=== PATIENT | male | born 1970 | race Caucasian/White ===

== ENCOUNTER 2017-09-07 09:29 | Emergency (ER) | payer MEDICARE, MEDICAID ==
[2017-09-07] MEDS ORDERED: SODIUM CHLORIDE 0.9% 1,000 ML IV ONE ×2 (09:48)
[2017-09-07 10:05] LABS: BASOPHILS # (AUTO) 0.1 10^3/uL (0.0-0.1); BASOPHILS % (AUTO) 0.7 %; HGB - HEMOGLOBIN 15.7 g/dL (14.0-18.0); LYMPHOCYTES # (AUTO) 0.6 10^3/uL (1.5-3.5); LYMPHOCYTES % (AUTO) 4.7 %; MEAN CORPUSCULAR HEMOGLOBIN 32.6 pg (27.0-31.0); MEAN CORPUSCULAR HGB CONC 34.5 g/dL (32.0-36.0); MEAN CORPUSCULAR VOLUME 94.5 fL (80.0-94.0); MEAN PLATELET VOLUME 7.4 fL (7.4-11.4); MONOCYTES # (AUTO) 0.3 10^3/uL (0.0-1.0); MONOCYTES % (AUTO) 2.1 %; NEUTROPHILS # (AUTO) 10.9 10^3/uL (1.5-6.6); NEUTROPHILS % (AUTO) 92.5 %; PLT - PLATELET COUNT 156 10^3/uL (130-450); RED BLOOD COUNT 4.83 10^6/uL (4.70-6.10); RED CELL DISTRIBUTION WIDTH 14.4 % (12.0-15.0); WHITE BLOOD COUNT 11.8 x10^3/uL (4.8-10.8)
[2017-09-07 10:17] LABS: ALBUMIN 3.6 g/dL (3.2-5.5); ALBUMIN/GLOBULIN RATIO 1.1 (1.0-2.2); ALKALINE PHOSPHATASE 60 IU/L (42-121); ALT ALANINE AMINOTRANSFERASE 31 IU/L (10-60); AST ASPARTATE AMINOTRANSFERASE 26 IU/L (10-42); BILIRUBIN,TOTAL 0.7 mg/dL (0.2-1.0); BUN - BLOOD UREA NITROGEN 18 mg/dL (6-20); CALCIUM 8.5 mg/dL (8.5-10.3); CARBON DIOXIDE - CO2 26 mmol/L (21-32); CHLORIDE 99 mmol/L (101-111); CREATININE 1.3 mg/dL (0.6-1.2); GFR - MDRD 59 (>89); GLUCOSE 129 mg/dL (70-100); LIPASE < 10 U/L (22-51); SODIUM 138 mmol/L (135-145)
--- NOTE | 2017-09-07 11:01 | XRAY Report ---
EXAM: CHEST RADIOGRAPHY EXAM DATE: 09/07/2017 10:43 AM. CLINICAL HISTORY: Cough, fever. COMPARISON: None. TECHNIQUE: 2 views. FINDINGS: Lungs/Pleura: Mild interstitial opacity at the lung bases, atelectasis versus infiltrate. No signific ant pleural effusion. No pneumothorax. Mediastinum: Heart and mediastinal contours are unremarkable. Other: None. IMPRESSION: Mild basal interstitial opacity, atelectasis versus infiltrate. [facility] Referring Provider Line: [phone] SITE ID: [id number]
[2017-09-07] MEDS ORDERED: cefTRIAXone 1 GM VIAL IVP STA (11:59)
--- NOTE | 2017-09-07 12:02 | ED Physician Documentation ---
History of Present Illness - Stated complaint Stated Complaint: SORE THROAT - Chief complaint Chief Complaint: Heent - History obtained from History obtained from: Patient, Family - History of Present Illness Timing: How many weeks ago (6) Pain level max: 5 Pain level now: 4 Quality: aching, sore - Additonal information Additional information: Patient is a 47-year-old male with Down syndrome who presents to the emergency department with a sore throat today. He has been sick for the past several weeks. Has had coughing, vomiting. Has also had fevers intermittently. Nothing has made the sore throat better. It is worse with swallowing. Review of Systems Constitutional: reports: Fever Nose: reports: Rhinorrhea / runny nose, Congestion Throat: reports: Sore throat Respiratory: reports: Cough GI: reports: Abdominal Pain (epigastric after vomiting), Vomiting Skin: denies: Rash Musculoskeletal: denies: Neck pain, Back pain Neurologic: denies: Headache PD PAST MEDICAL HISTORY - Past Medical History Past Medical History: Yes Other Past Medical History: downs syndrome - Past Surgical History Past Surgical History: Yes - Present Medications Home Medications: Ambulatory Orders Medication Instructions Recorded Confirmed Azithromycin [Zithromax] 0 mg PO DAILY #6 tablet 09/07/17 - Allergies Allergies/Adverse Reactions: Allergies Allergy/AdvReac Type Severity Reaction Status Date / Time Penicillins Allergy Unknown Verified 09/07/17 09:37 - Social History Does the pt smoke?: No Smoking Status: Never smoker - Immunizations Immunizations are current?: Yes PD ED PE NORMAL - Vitals Vital signs reviewed: Yes - General General: Alert and oriented X 3, No acute distress, Well developed/nourished - HEENT HEENT: PERRL, Ears normal, Moist mucous membranes, Other (Mild posterior oropharyngeal erythema without tonsillar exudates. Lips are dry and cracked) - Neck Neck: Supple, no meningeal sign - Cardiac Cardiac: RRR, Strong equal pulses - Respiratory Respiratory: No respiratory distress, Other (Rhonchi bilaterally) - Abdomen Abdomen: Soft, Non tender, Non distended - Back Back: No CVA TTP, No spinal TTP - Derm Derm: Warm and dry, No rash - Extremities Extremities: No edema - Neuro Neuro: Alert and oriented X 3 - Psych Psych: Normal mood, Normal affect Results - Vitals Vitals: Vital Signs - 24 hr 09/07/17 09/07/1709/07/18 09:34 10:10 12:15 Temperature 36.6 C Heart Rate 97 92 92 Respiratory 18 16 Rate Blood Pressure 91/62 101/73 108/72 O2 Saturation 96 96 Oxygen O2 Source Room air - Labs Labs: Laboratory Tests 09/07/17 09/07/17 09/07/17 09:50 09:50 09:50 WBC 11.8 H RBC 4.83 Hgb 15.7 Hct 45.6 MCV 94.5 H MCH 32.6 H MCHC 34.5 RDW 14.4 Plt Count 156 MPV 7.4 Neut # 10.9 H Lymph # 0.6 L Bibb # 0.3 Eos # 0.0 Baso # 0.1 Absolute Nucleated RBC 0.01 Nucleated RBC % 0.1 Sodium 138 Potassium 3.8 Chloride 99 L Carbon Dioxide 26 Anion Gap 13.0 BUN 18 Creatinine 1.3 H Estimated GFR (MDRD) 59 L Glucose 129 H Lactic Acid 1.2 Calcium 8.5 Total Bilirubin 0.7 AST 26 ALT 31 Alkaline Phosphatase 60 Total Protein 7.0 Albumin 3.6 Globulin 3.4 Albumin/Globulin Ratio 1.1 Lipase < 10 L Group A Strep Rapid 09/07/17 10:43 WBC RBC Hgb Hct MCV MCH MCHC RDW Plt Count MPV Neut # Lymph # Bibb # Eos # Baso # Absolute Nucleated RBC Nucleated RBC % Sodium Potassium Chloride Carbon Dioxide Anion Gap BUN Creatinine Estimated GFR (MDRD) Glucose Lactic Acid Calcium Total Bilirubin AST ALT Alkaline Phosphatase Total Protein Albumin Globulin Albumin/Globulin Ratio Lipase Group A Strep Rapid Negative - Rads (name of study) cxr Radiology: Prelim report reviewed, EMP read contemporaneously, See rad report ( Mild basal interstitial opacity, atelectasis versus infiltrate. ) PD MEDICAL DECISION MAKING - ED course Complexity details: reviewed results, re-evaluated patient, considered differential, d/w patient, d/w family ED course: Patient is a 47-year-old male who presents to the emergency department what appears to be pneumonia. Will place on antibiotics. Given IV Rocephin and will place on azithromycin. He did have emesis 1 here. He did appear dehydrated and feels better after IV fluids. No evidence of sepsis. No hypoxia. No respiratory distress. Patient and family counseled regarding signs and symptoms for which I believe and urgent re-evaluation would be necessary. Patient with good understanding of and agreement to plan and is comfortable going home at this time This document was made in part using voice recognition software. While efforts are made to proofread this document, sound alike and grammatical errors may occur. Departure - Departure Disposition: 01 Home, Self Care Clinical Impression: Dehydration Pneumonia Qualifiers: Pneumonia type: due to unspecified organism Laterality: right Lung location: lower lobe of lung Qualified Code(s): J18.1 - Lobar pneumonia, unspecified organism Condition: Good Instructions: ED Dehydration, ED Pneumonia Adult Follow-Up: your,doctor in 3 days for recheck [Other] Prescriptions: Azithromycin [Zithromax] 0 mg PO DAILY #6 tablet Comments: Drink plenty of fluids. Return if you worsen. Take all antibiotics until gone. Discharge Date/Time: 09/07/17 12:45
[2017-09-07 12:16] VITALS: BP 108/72
[2017-09-07] MEDS ORDERED: ONDANSETRON 4 MG/2 ML VIAL IVP STA (12:22)
== END 2017-09-07 12:45 | disposition home or self-care (01) ==
LOC: ED 09:29
DX: E86.0 Dehydration (principal); J18.9 Pneumonia, unspecified organism; Q90.9 Down syndrome, unspecified
CPT/HCPCS: 36415; 71046; 80053; 83605; 83690; 85025; 87070; 87430; 96374; 96375; 99283; 99284

== ENCOUNTER 2019-10-06 10:58 | Emergency (ER) | payer MEDICARE, MEDICAID ==
--- NOTE | 2019-10-06 12:01 | ED Physician Documentation ---
PD HPI HEAD INJURY - Stated complaint Stated Complaint: CHIN,NECK PX FELL - Chief complaint Chief Complaint: Trauma Hd/Nk - History obtained from History obtained from: Patient - History of Present Illness Mechanism of head injury: Fell (he reports he rolled and fell out of bed and struck face/jaw on floor. Pain with opening mouth and occlusion. Local swelling.) Where head injury occurred: Home Timing - onset: Today Location of injury: Right, Front Quality of pain: Pain, Aching Associated symptoms: No: LOC, AMS, Nausea / vomiting Symptoms worsen with: Palpation, Other (opening and closing mouth) Contributing factors: No: Anticoagulated Similar symptoms before: Has not had sx before Review of Systems Constitutional: denies: Fever, Chills Nose: denies: Rhinorrhea / runny nose, Congestion Throat: denies: Sore throat Respiratory: denies: Cough GI: denies: Vomiting, Diarrhea Neurologic: denies: Focal weakness, Numbness, Altered mental status PD PAST MEDICAL HISTORY - Past Medical History Respiratory: Sleep apnea, CPAP use Neuro: Other (Down Syndrome) Musculoskeletal: Osteoarthritis - Past Surgical History Past Surgical History: Yes - Allergies Allergies/Adverse Reactions: Allergies Allergy/AdvReac Type Severity Reaction Status Date / Time Penicillins Allergy Unknown Verified 10/06/19 11:04 - Social History Does the pt smoke?: No Smoking Status: Never smoker - Immunizations Immunizations are current?: Yes PD ED PE NORMAL - Vitals Vital signs reviewed: Yes - General General: Alert and oriented X 3, No acute distress, Well developed/nourished - HEENT HEENT: Ears normal, Moist mucous membranes, Pharynx benign, Dentition benign, Other (facial swelling and tenderness right cheek and mandible. TMJ without tenderness. 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, No motor deficit, No sensory deficit Eye Opening: Spontaneous Motor: Obeys Commands Verbal: Confused (caregiver says he has poor short term memory and confused easily due to his Downs.) GCS Score: 14 Results - Vitals Vitals: Vital Signs - 24 hr 10/06/19 10/06/19 11:04 12:25 Temperature 37.3 C Heart Rate 88 76 Respiratory 16 16 Rate Blood Pressure 115/79 101/76 O2 Saturation 98 98 Oxygen O2 Source Room air - Rads (name of study) maxilofacial CT Radiology: Prelim report reviewed (no fractures), See rad report PD MEDICAL DECISION MAKING - ED course Complexity details: reviewed results (no fractures on MFM CT. ), considered differential (no concussive symptoms. Facial pain and feeling of pain with occlusion teeth, so can get imaging to ensure no fractures. ), d/w patient, other (caregiver with him) Departure - Departure Disposition: 01 Home, Self Care Clinical Impression: Accidental fall from bed Qualifiers: Encounter type: initial encounter Qualified Code(s): W06.XXXA - Fall from bed, initial encounter Facial contusion Qualifiers: Encounter type: initial encounter Qualified Code(s): S00.83XA - Contusion of other part of head, initial encounter Condition: Stable Record reviewed to determine appropriate education?: Yes Instructions: ED Contusion Face Comments: Your scan does not show any fractures of the face. It will still be sore with the localized swelling. Chewing as tolerated based on discomfort. You can use some cool towels or ice to the area periodically today for the swelling. Anti-inflammatory such as ibuprofen or naproxen 3 times a day for the next several days. Add Tylenol if needed for pain. I would anticipate improvement over the next 1-2 days and resolution within several days. Discharge Date/Time: 10/06/19 13:26
[2019-10-06] MEDS ORDERED: IBUPROFEN 100 MG/5 ML UDC PO STA (12:06)
[2019-10-06 12:28] VITALS: BP 101/76
--- NOTE | 2019-10-06 13:15 | CT Report ---
Reason: fall with right jaw pain Procedure Date: 10/06/2019 Accession Number: [id number] / [id number] Procedure: CT - MAXILLOFACIAL WO CPT Code: Final Report FULL RESULT: EXAM: CT MAXILLOFACIAL WITHOUT CONTRAST EXAM DATE: 10/06/2019 12:53 PM. CLINICAL HISTORY: Fall with right jaw pain. COMPARISONS: None. TECHNIQUE: Thin-section axial images were acquired of the face without contrast. Post-processing: Coronal and sagittal reformats. Other: None. In accordance with CT protocol optimization, one or more of the following dose reduction techniques were utilized for this exam: automated exposure control, adjustment of mA and/or KV based on patient size, or use of iterative reconstructive technique. FINDINGS: Bones: No displaced fracture or bone lesion. Temporomandibular Joints: The temporomandibular joints are symmetric and normally located. Sinuses: No significant abnormality with exception of opacification of the right maxillary sinus. Other: Right jaw soft tissue swelling. IMPRESSION: 1. No displaced facial fracture. 2. Right jaw facial swelling. 3. Chronic appearing right maxillary sinus disease. [facility]
== END 2019-10-06 13:26 | disposition home or self-care (01) ==
LOC: ED 10:58
DX: S00.83XA Contusion of other part of head, initial encounter (principal); W06.XXXA Fall from bed, initial encounter; Y92.003 Bedroom of unspecified non-institutional (private) residence as the place of occurrence of the external cause; Q90.9 Down syndrome, unspecified
CPT/HCPCS: 70486; 99284; A9270

== ENCOUNTER 2023-05-05 11:45 | Outpatient (CLI) | payer MEDICARE, MEDICAID | END 2023-05-05 11:46 | disposition critical access hospital (66) | LOC: EMS 11:45 | DX: R11.2 Nausea with vomiting, unspecified (principal); M54.2 Cervicalgia; R03.1 Nonspecific low blood-pressure reading | CPT/HCPCS: A0425; A0427 ==

== ENCOUNTER 2023-05-05 12:04 | Inpatient (IN) | payer MEDICARE, MEDICAID ==
[2023-05-05] MEDS ORDERED: SODIUM CHLORIDE 0.9% 2,000 ML IV STA (12:18)
[2023-05-05] MEDS ORDERED: cefTRIAXone 2 GM in SODIUM CHLORIDE 0.9% MINIBAG 100 ML IV STA (12:41)
--- NOTE | 2023-05-05 12:43 | ED Physician Documentation ---
PD HPI ALTERED MENTAL STATUS - Stated complaint Stated Complaint: N/V/D - Chief complaint Chief Complaint: Neuro - History obtained from History obtained from: Patient, Family - Additional information Additional information: 53-year-old with history of Down syndrome and sleep apnea on CPAP presents by ambulance with his sister. He became acutely ill this morning with vomiting, chills, neck pain and neck stiffness and became incontinent of bowel and bladder. He was altered for a time and mostly back to normal now per the sister. Was hypotensive prior to arrival down to 70s over 30s. PD PAST MEDICAL HISTORY - Past Medical History Past Medical History: Yes Respiratory: Sleep apnea, CPAP use Neuro: Other Musculoskeletal: Osteoarthritis - Past Surgical History Past Surgical History: Yes - Allergies Allergies/Adverse Reactions: Allergies Allergy/AdvReac Type Severity Reaction Status Date / Time Penicillins Allergy Unknown Verified 10/06/19 11:04 - Social History Does the pt smoke?: No Smoking Status: Never smoker - Immunizations Immunizations are current?: Yes PD ED PE NORMAL - Vitals Vital signs reviewed: Yes - General General: Other (Down's facies, appears nontoxic though. Much of the history is from the sister.) - HEENT HEENT: PERRL, EOMI - Neck Neck: Other (He does have significant neck stiffness) - Cardiac Cardiac: Other (Resting tachycardia, no murmur) - Respiratory Respiratory: No respiratory distress, Clear bilaterally - Abdomen Abdomen: Non tender - Derm Derm: No rash - Neuro Eye Opening: Spontaneous Motor: Obeys Commands Verbal: Confused (mild) GCS Score: 14 Results - Vitals Vitals: Vital Signs - 24 hr 05/05/23 05/05/23 05/05/23 12:12 12:16 12:18 Temperature 37.6 C 37.6 C 37.6 C Heart Rate 104 H 104 H 104 H Respiratory 18 18 18 Rate Blood Pressure 85/52 L 58/52 L 85/52 L O2 Saturation 95 95 95 05/05/23 05/05/23 05/05/23 12:48 13:18 13:46 Temperature Heart Rate 105 H 100 100 Respiratory 15 16 16 Rate Blood Pressure 102/84 H 100/80 100/60 O2 Saturation 99 100 100 05/05/23 05/05/23 05/05/23 14:00 14:30 15:00 Temperature 36.8 C Heart Rate 100 100 100 Respiratory 16 21 18 Rate Blood Pressure 90/60 85/57 L 97/60 O2 Saturation 100 95 95 05/05/23 15:30 Temperature Heart Rate 107 H Respiratory 19 Rate Blood Pressure 97/60 O2 Saturation 97 Oxygen O2 Source Room air - EKG (time done) 1223 EKG releavant findings:: EKG personally interpreted by author of this note. Relevant findings are: Rate: Rate (enter#) (96) Rhythm: NSR [place]: Normal Intervals: Normal [place] QRS: Normal Ischemia: Normal ST segments - Labs Labs: Microbiology 05/05/23 14:10 Gram Stain - Final Cerebral Spinal Fluid Laboratory Tests 05/05/23 05/05/23 05/05/23 12:31 12:31 12:31 WBC 7.3 RBC 4.91 Hgb 16.2 Hct 46.5 MCV 94.7 H MCH 33.0 H MCHC 34.8 RDW 13.6 Plt Count 45 L MPV 11.4 Neut # (Auto) 7.1 H Lymph # (Auto) 0.2 L Clare # (Auto) 0.0 Eos # (Auto) 0.0 Baso # (Auto) 0.0 Absolute Nucleated RBC 0.00 Nucleated RBC % 0.0 Sodium 140 Potassium 3.5 Chloride 106 Carbon Dioxide 28 Anion Gap 6.0 BUN 22 H Creatinine 1.6 H Estimated GFR (MDRD) 45 L Glucose 105 H Lactic Acid 2.7 H Calcium 9.2 Total Bilirubin 0.5 AST 21 ALT 18 Alkaline Phosphatase 78 Total Protein 6.4 Albumin 3.9 Globulin 2.5 Albumin/Globulin Ratio 1.6 CSF Color CSF Clarity Xanthrochromic CSF WBC CSF RBC CSF Cell Count Tube # CSF Glucose CSF Total Protein Nasal Adenovirus (PCR) Nasal B. parapertussis DNA (PCR) Nasal Coronavir 229E PCR Nasal Coronavir HKU1 PCR Nasal Coronavir NL63 PCR Nasal Coronavir OC43 PCR Nasal Enterovir/Rhinovir PCR Nasal Influenza B PCR Nasal Influenza A PCR Nasal Parainfluen 1 PCR Nasal Parainfluen 2 PCR Nasal Parainfluen 3 PCR Nasal Parainfluen 4 PCR Nasal RSV (PCR) Nasal B.pertussis DNA PCR Nasal C.pneumoniae (PCR) Adolph Human Metapneumo PCR Nasal M.pneumoniae (PCR) Nasal SARS-CoV-2 (PCR) 05/05/23 05/05/23 14:10 14:35 WBC RBC Hgb Hct MCV MCH MCHC RDW Plt Count MPV Neut # (Auto) Lymph # (Auto) Clare # (Auto) Eos # (Auto) Baso # (Auto) Absolute Nucleated RBC Nucleated RBC % Sodium Potassium Chloride Carbon Dioxide Anion Gap BUN Creatinine Estimated GFR (MDRD) Glucose Lactic Acid Calcium Total Bilirubin AST ALT Alkaline Phosphatase Total Protein Albumin Globulin Albumin/Globulin Ratio CSF Color COLORLESS CSF Clarity CLEAR Xanthrochromic ABSENT CSF WBC 3 CSF RBC 275 H CSF Cell Count Tube # CSF TUBE# 3 CSF Glucose 78 H CSF Total Protein 58 H Nasal Adenovirus (PCR) NOT DETECTED Nasal B. parapertussis DNA (PCR) NOT DETECTED Nasal Coronavir 229E PCR NOT DETECTED Nasal Coronavir HKU1 PCR NOT DETECTED Nasal Coronavir NL63 PCR NOT DETECTED Nasal Coronavir OC43 PCR NOT DETECTED Nasal Enterovir/Rhinovir PCR NOT DETECTED Nasal Influenza B PCR NOT DETECTED Nasal Influenza A PCR NOT DETECTED Nasal Parainfluen 1 PCR NOT DETECTED Nasal Parainfluen 2 PCR NOT DETECTED Nasal Parainfluen 3 PCR NOT DETECTED Nasal Parainfluen 4 PCR NOT DETECTED Nasal RSV (PCR) NOT DETECTED Nasal B.pertussis DNA PCR NOT DETECTED Nasal C.pneumoniae (PCR) NOT DETECTED Adolph Human Metapneumo PCR NOT DETECTED Nasal M.pneumoniae (PCR) NOT DETECTED Nasal SARS-CoV-2 (PCR) NOT DETECTED - Rads (name of study) 1v cxr Relevant Findings:: Final report received, EMP independent interpretation of test Procedures - Lumbar Puncture - Major Position: Laying left side, Sitting Location: L3-L4, Midline approach Anesthesia: Local lidocaine CSF: Other (I was unable initially after several tries to get the lumbar puncture and ALISA Gunn came down and also had quite a bit of difficulty but eventually we were able to get the lumbar puncture done. The initial fluid was cloudy but I think that was just from repeated attempts as it rapidly cleared.) Other: Sterile prep and drape PD Medical Decision Making - ED course ED course: 53-year-old gentleman who had rigors at home and now presents hypotensive and complaining of neck stiffness. The concern of course would be for meningitis and with some difficulty an LP was done and negative for same. He remained modestly hypotensive albeit not at the level that would require vasopressor agents while in the emergency department despite 2 L of IV fluid. The remainder of his work-up demonstrated fairly normal CBC, modest MALA and lactic acidosis. Given the concern for meningitis he was presumptively treated with dexamethasone, IV ceftriaxone, and vancomycin during the work-up for this, which should cover him well for potential unknown source sepsis. Given the consistent concern for sepsis albeit without a source at this point we are placing him in observation to rule out sepsis and I spoke with Dr. Ro for obs at 3:45 PM. - Critical Care Time(min): 42 Time Includes: Direct patient care, Review records, Reassess patient, Document care, Coordinate care, Medical consult, Family consult for tx dec Data interpretation: Labs, Pulse ox Procedures included in critical care time: Peripheral IV Procedures excluded from critical care time: Lumbar puncture Departure - Departure Disposition: ED Place in Observation Clinical Impression: Altered mental status Qualifiers: Altered mental status type: delirium Qualified Code(s): R41.0 - Disorientation, unspecified Hypotension Qualifiers: Hypotension type: unspecified hypotension type Qualified Code(s): I95.9 - Hypotension, unspecified Condition: Serious Forms: PCP List
[2023-05-05 12:49] LABS: BASOPHILS % (AUTO) 0.4 %; EOSINOPHILS % (AUTO) 0.1 %; HCT - HEMATOCRIT 46.5 % (42.0-52.0); HGB - HEMOGLOBIN 16.2 g/dL (14.0-18.0); LYMPHOCYTES # (AUTO) 0.2 10^3/uL (1.5-3.5); MEAN CORPUSCULAR HGB CONC 34.8 g/dL (32.0-36.0); MEAN CORPUSCULAR VOLUME 94.7 fL (80.0-94.0); MEAN PLATELET VOLUME 11.4 fL (7.4-11.4); MONOCYTES % (AUTO) 0.4 %; NEUTROPHILS # (AUTO) 7.1 10^3/uL (1.5-6.6); NEUTROPHILS % (AUTO) 96.6 %; PLT - PLATELET COUNT 45 10^3/uL (130-450); RED BLOOD COUNT 4.91 10^6/uL (4.70-6.10); RED CELL DISTRIBUTION WIDTH 13.6 % (12.0-15.0); WHITE BLOOD COUNT 7.3 x10^3/uL (4.8-10.8)
[2023-05-05 13:03] LABS: ALBUMIN 3.9 g/dL (3.2-5.5); ALBUMIN/GLOBULIN RATIO 1.6 (1.0-2.2); BILIRUBIN,TOTAL 0.5 mg/dL (0.2-1.0); CALCIUM 9.2 mg/dL (8.5-10.3); CREATININE 1.6 mg/dL (0.6-1.3); POTASSIUM 3.5 mmol/L (3.5-4.5); TOTAL PROTEIN 6.4 g/dL (6.4-8.9)
[2023-05-05 13:04] LABS: LACTIC ACID, VENOUS 2.7 mmol/L (0.5-2.2)
[2023-05-05] MEDS ORDERED: MORPHINE 10 MG/ML VIAL IVP STA (13:11)
[2023-05-05] MEDS ORDERED: VANCOMYCIN INJ 1.5 GM in SODIUM CHLORIDE 0.9% 500 ML IV STA (14:13)
[2023-05-05] MEDS ORDERED: DEXAMETHASONE 10 MG/ML VIAL IVP STA (14:14)
[2023-05-05 14:39] LABS: CSF - GLUCOSE 78 mg/dL (45-70); TOTAL PROTEIN,CSF 58 mg/dL (15-45)
[2023-05-05 14:49] LABS: CLARITY,CSF CLEAR (CLEAR); COLOR,CSF COLORLESS (COLORLESS); CSF TUBE # CSF TUBE# 3; CSF XANTHOCHROMIA ABSENT (ABSENT)
[2023-05-05 14:50] LABS: RED BLOOD CELL,CSF 275 /mm^3 (0-1); WHITE BLOOD CELL,CSF 3 /mm^3 (0-5)
--- NOTE | 2023-05-05 14:58 | XRAY Report ---
PROCEDURE: Chest 1 View X-Ray INDICATIONS: sepsis TECHNIQUE: One view of the chest was acquired. COMPARISON: Chest x-ray 09/07/2017. FINDINGS: Surgical changes and devices: None. Lungs and pleura: No pleural effusions or pneumothorax. Lungs are clear. Mediastinum: Mediastinal contours appear normal. Heart size is normal. Bones and chest wall: No suspicious bony lesions. Overlying soft tissues appear unremarkable. IMPRESSION: No acute cardiopulmonary process. Reviewed by: Juan Estrella MD on 05/05/2023 2:57 PM PDT Approved by: Juan Estrella MD on 05/05/2023 2:57 PM PDT Station ID: [id number]
--- NOTE | 2023-05-05 15:29 | ANESTHESIA PROCEDURE NOTE ---
Diagnosis: N/V/D, stiff neck, HOTN Procedure: LP Consent for Procedure(s) Verified and Reviewed: Yes Height and Weight: Height 5 ft 6 in Weight (kg) 79.9 kg Body Mass Index 28.4 Vital Signs: Temp Pulse Resp BP Pulse Ox O2 Flow Rate 36.8 C 100 18 97/60 95 05/05/23 14:00 05/05/23 15:00 05/05/23 15:00 05/05/23 15:00 05/05/23 15:00 Allergies Penicillins Allergy (Verified 10/06/19 11:04) Unknown Requesting Provider: Dr. Moran Location: ED RM 02 ASA classification: 3-Severe systemic disease Is this case an emergency?: Yes Anes. Monitoring and Equipment: Non-invasive BP, Pulse oximetery, Sterile prep and drape Anes. Procedure Start Time: 13:16 Anes. Procedure Stop Time: 13:50 Procedure Notes: LP performed at the bedside under sterile technique. R lateral position. 22g 5" pencan spinal needle. Pt tolerated well, NAC. Sister and RN assist at the bedside.
[2023-05-05 15:37] LABS: B. PARAPERTUSSIS- RESP PCR PAN NOT DETECTED; B. PERTUSSIS- RESP PCR PANEL NOT DETECTED; C. PNEUMONIAE- RESP PCR PANEL NOT DETECTED; CORONAVIRUS 229E-RESP PCR NOT DETECTED; CORONAVIRUS HKU1-RESP PCR NOT DETECTED; CORONAVIRUS NL63-RESP PCR NOT DETECTED; CORONAVIRUS OC43-RESP PCR NOT DETECTED; HUMAN METAPNEUMOVIRUS NOT DETECTED; INFLUENZA A- RESP PCR PANEL NOT DETECTED; INFLUENZA B - RESP PCR PANEL NOT DETECTED; M. PNEUMONIAE- RESP PCR PANEL NOT DETECTED; PARAINFLUENZA VIRUS 1 NOT DETECTED; PARAINFLUENZA VIRUS 2 NOT DETECTED; PARAINFLUENZA VIRUS 3 NOT DETECTED; PARAINFLUENZA VIRUS 4 NOT DETECTED; RHINOVIRUS/ENTEROVIRUS NOT DETECTED; RSV- RESP PCR PANEL NOT DETECTED; SARS-CoV-2 -RESP PCR PANEL NOT DETECTED
[2023-05-05] MEDS ORDERED: SODIUM CHLORIDE FLUSH 0.9% 10 ML SYRINGE IVP PRN (15:44)
[2023-05-05] MEDS ORDERED: ONDANSETRON ODT 4 MG TABLET TL PRN (15:44)
[2023-05-05] MEDS ORDERED: ONDANSETRON 4 MG/2 ML VIAL IVP PRN (15:44)
[2023-05-05] MEDS ORDERED: ACETAMINOPHEN 325 MG TABLET PO PRN (15:44)
[2023-05-05] MEDS ORDERED: oxyCODONE 5 MG TABLET PO PRN (15:44)
[2023-05-05] MEDS ORDERED: SODIUM CHLORIDE 0.9% 1,000 ML IV SCH (16:00)
[2023-05-05 17:07] LABS: BILIRUBIN,URINE NEGATIVE (NEGATIVE); GLUCOSE, URINE (UA) NEGATIVE (NEGATIVE); KETONES,URINE (UA) NEGATIVE (NEGATIVE); LEUKOCYTE ESTERASE, URINE SMALL (NEGATIVE); NITRITE,URINE NEGATIVE (NEGATIVE); OCCULT BLOOD,URINE NEGATIVE (NEGATIVE); PROTEIN,URINE NEGATIVE (NEGATIVE); UROBILINOGEN,URINE 0.2 (NORMAL) E.U./dL (NORMAL)
[2023-05-05] MEDS: SODIUM CHLORIDE FLUSH 0.9% 10 ML SYRINGE IVP SCH (17:09)
[2023-05-05 17:12] LABS: CLARITY,URINE HAZY (CLEAR)
[2023-05-05 17:24] LABS: WBC,URINE >25 /HPF (0-3)
[2023-05-05 17:25] LABS: BACTERIA,URINE Many /HPF (None Seen); MUCUS,URINE Few Strands; RBC,URINE 0-5 /HPF (0-5); SQUAMOUS EPITHELIAL CELL,UR RARE Squamous (<= Few)
--- NOTE | 2023-05-05 18:07 | HISTORY & PHYSICAL EXAMINATION ---
Chief Complaint - Chief Complaint Chief Complaint: Nausea, vomiting, diarrhea with confusion and weakness History of Present Illness - Admitted From Admitted From:: Home via EMS - History Obtained From Records Reviewed: [facility] History obtained from: Patient, mom, ER provider Exam Limitations: None - History of Present Illness HPI Comment/Other: This is a 53-year-old male who has trisomy 21, lives with his mom and stepdad. He had an episode of shaking with nausea vomiting and diarrhea earlier today. He went to the bathroom and he became dizzy and lethargic. He has a history of seizures, once, and his mom became very alarmed. So she called an ambulance. He was brought to the emergency room where his blood pressure was in the 70s over 40s, fingerstick glucose was 144. Because he was complaining of neck stiffness, the ER evaluated him for possible infection versus meningitis. His temperature was 37.6. Blood pressure 85/52. Respirations 18. 95% on room air. On examination he was lethargic male with features of trisomy 21. Responsive to voice and commands. Neck was stiff and hurt. He CBC was normal. Chemistries were essentially normal except for creatinine of 1.6 and a BUN of 22. Lactic acid was 2.7. A chest x-ray was without acute cardiopulmonary process. Urinalysis had a small amount of leukocyte Estrace, greater than 25 white cells, rare squamous cells, many bacteria. Because of neck stiffness he underwent a lumbar puncture. His CSF was colorless, clear, with 3 white cells, 275 red cells. 78 glucose which was high, and 58 total protein which was high. His viral panel was negative for COVID, parainfluenza, enterovirus, etc. Treatment in the emergency room has consisted of Rocephin and vancomycin for empiric treatment of meningitis. Dexamethasone 15 mg IV push once. Morphine once. 2 L of normal saline. The case was discussed with the emergency room provider. Dr. Moran and I discussed possible sources. Patient was negative on review of systems other than the neck stiffness, so I am going to continue empiric treatment for meningitis and will evaluate the patient for further infection. I met the patient on [facility]. His mom was at the bedside. He and she were able to give me an adequate history. Since he has not had any severe abnormalities. There have been no heart issues, GI issues, or renal issues. He is independent with activities of daily living. Just does not drive a car. He was in good health until this episode. He tells me there is no blurred vision, headache, ear pain. No sore throat. It does not hurt to swallow. He denies being congested in his sinuses or his chest but both mom and I tell him that he sounds like he is congested in his mouth. He denies cough, phlegm production. He denies chest pain, orthopnea, edema, palpitations. He did have the diarrhea but denies abdominal pain. He is eating dinner as I speak to him and he says it tasted really good. He is eating about 50% of his chicken and rice. Eating all of his dessert and fruit. He does not have any knee pain. Any joint pain. He has a skin rash. Mom said that he was staying with his dad a couple of years ago and developed a severe fungal infection of his feet and legs. They treated it but ever since then his legs have been discolored. The rash is not new. He has had seizures once. But denies syncope. Cognitive function is stable for him. History - Past Medical History Respiratory: reports: Sleep apnea, CPAP use Neuro: reports: Other Musculoskeletal: reports: Osteoarthritis MRSA Hx?: No Meds/Allgy - Allergies Allergies/Adverse Reactions: Allergies Allergy/AdvReac Type Severity Reaction Status Date / Time Penicillins Allergy Unknown Verified 10/06/19 11:04 Review of Systems - Other Findings Other Findings: Complete review of systems done and noted in HPI Prior Level of Functionality: Cognitive deficits do not let him live independently. However he is able to feed himself, dress himself. Does not drive a car. Does not pay bills. Does not use any durable medical equipment Exam - Vital Signs Reviewed Vital Signs: Yes Vital Signs: Vital Signs x48h Temp Pulse Resp BP Pulse Ox 05/05/23 16:00 36.8 C 110 H 19 86/61 L 93 05/05/23 15:30 107 H 19 97/60 97 05/05/23 15:00 100 18 97/60 95 05/05/23 14:30 100 21 85/57 L 95 05/05/23 14:00 36.8 C 100 16 90/60 100 05/05/23 13:46 100 16 100/60 100 05/05/23 13:18 100 16 100/80 100 05/05/23 12:48 105 H 15 102/84 H 99 05/05/23 12:18 37.6 C 104 H 18 85/52 L 95 05/05/23 12:16 37.6 C 104 H 18 58/52 L 95 05/05/23 12:12 37.6 C 104 H 18 85/52 L 95 - Physical Exam General Appearance: positive: Other (Deedee, 5 foot 6 male at 85 kg so moderately overweight. Alert, sitting up in bed, talking to mom and watching TV while eating dinner. No distress) Eyes Bilateral: positive: PERRL, EOMI, Other (Trisomy 21 epicanthal folds) ENT: positive: No signs of dehydration Neck: positive: Other (Left neck has diffuse fullness in comparison to right neck. The muscles appear much firmer on the left neck than the right neck. Patient denies pain with turning his head right or left or with stretching his chin to his chest. Or hyperextending). negative: No JVD, Stiff neck, Kernig's sign Respiratory: positive: No respiratory distress. negative: Wheezes, Rales, Rhonchi Cardiovascular: positive: Regular rate & rhythm. negative: Systolic murmur Peripheral Pulses: positive: 1+ Abdomen: positive: Non-tender, No organomegaly, Nml bowel sounds, No distention, Other (Large pannus) Skin: positive: Warm, Dry, Other (Bilateral lower extremities have scattered small circular lesions. Some are pink, some are hyperpigmented. No open lesions.) Extremities: positive: Non-tender, Full ROM, No pedal edema, Other (Trisomy 21 foot deformities, some onychomycosis) Neurologic/Psychiatric: positive: Oriented x3, CN's nml (2-12), Motor nml Conclusion/Plan - Problem List (1) Hypotension Conclusion/Plan: This is in context of a patient had sudden nausea vomiting and diarrhea. But only 1 episode. Our primary thought process is that he is has an infection and not GI bleed, anemia, dehydration. Lactic acid is elevated. I am not finding any source of infection and that chest x-ray negative for pneumonia, lung exam negative, abdominal exam is benign, urinalysis does have some evidence of infection. And a lumbar puncture was done because of the neck stiffness and that is negative. I am finding that he has fullness in the left neck. Its not painful. He can flex and extend his neck, and turn his head to the right and left. He has not received IV fluids and empiric antibiotics. Blood pressure is still low at 86/61. But he denies dizziness. Mom cannot tell me what his baseline blood pressure is. He is tachycardic at 104-110.Lactic acid is now normal. Plan: Observation status to fully evaluate source of possible infection Soft tissue CT of neck Continue empiric antibiotics with Rocephin and vancomycin for now until CSF cultures come back Continue Rocephin for possible UTI as well Urine for toxicology screen Qualifiers: Hypotension type: unspecified hypotension type Qualified Code(s): I95.9 - Hypotension, unspecified (2) Abnormal urine Conclusion/Plan: Scant squamous cells. But many bacteria. We will treat this as a UTI until culture comes back. (3) Neck fullness Conclusion/Plan: Unilateral. Left side. No discrete adenopathy in the supraclavicular fossa, preauricular/posterior auricular area. He is chewing and swallowing normally and he repeatedly says that nothing hurts on that side. But mom feels that this is new. She is never noted that he had that type of fullness before. It is palpable by my exam. Plan: Left neck soft tissue CT (4) Chronic kidney disease Conclusion/Plan: Baseline creatinine is 1.3. GFR usually in the high 40s. Today's creatinine is 1.6 with a GFR 45. As such he appears to have chronic kidney disease with mild exacerbation. Antecedent history gives me no insight as to why he may be dehydrated. His p.o. intake has been normal, and he has been essentially "normal" to mom as far she knows. Plan: Reassess after IV fluids and hydration with BMP tomorrow Watch for vancomycin trough and its effects on kidney function Qualifiers: Chronic kidney disease stage: stage 3 (moderate) - Lab Results Lab results reviewed: Yes Fish Bones: 05/05/23 12:31 05/05/23 12:31
--- NOTE | 2023-05-05 20:27 | CT Report ---
PROCEDURE: SOFT TISSUE NECK W INDICATIONS: Hypotensive, tachycardic, left neck fullness of CONTRAST: Omni 300 100ml TECHNIQUE: After the administration of intravenous contrast, 3.0 mm axial sections acquired from the sella to th e aortic arch. Additional oblique axial 3.0 mm sections acquired through the pharynx. 3 mm thick co eliana reformats were generated. For radiation dose reduction, the following was used: automated exp osure control, adjustment of mA and/or kV according to patient size. COMPARISON: None. FINDINGS: Image quality: Excellent. Lymph nodes: No enlarged lymph nodes seen throughout the neck. Vessels: Visualized vasculature appears patent. Neck spaces: The oropharynx, nasopharynx, and pharynx demonstrate no mucosal lesions. The vocal cor ds, false vocal cords, pyriform sinuses, epiglottis, vallecula, and tongue base all appear normal. E xtramucosal spaces appear unremarkable. Glands: The parotid and submandibular glands appear normal. The thyroid is normal in size and there are no incidental findings. Miscellaneous: Visualized brain and orbits appear normal. Lung apices appear clear. Superficial so ft tissues appear normal. Bones: No suspicious bony lesions. Opacified right maxillary sinus is seen. Rest of the bilateral si nuses are well aerated. Bilateral mastoids are well aerated. IMPRESSION: 1. No neck soft tissue mass or lymphadenopathy. No abscess collection. Airway is patent. 2. Right maxillary sinusitis. CLINICAL RECOMMENDATION STATEMENTS: In patients <35 years with an ITN detected on CT, MRI, or extrathyroidal ultrasound, the Committee re commends further evaluation with dedicated thyroid ultrasound if the nodule is "e1 cm and has no susp icious imaging features, and if the patient has normal life expectancy. In patients "e35 years with an ITN detected on CT, MRI, or extrathyroidal ultrasound, the Committee r ecommends further evaluation with dedicated thyroid ultrasound if the nodule is "e1.5 cm and has no s uspicious imaging features, and if the patient has normal life expectancy. (ACR, 2014) Reviewed by: Naresh Burton MD on 05/05/2023 8:26 PM PDT Approved by: Naresh Burton MD on 05/05/2023 8:26 PM PDT Station ID: [id number]
[2023-05-05] MEDS ORDERED: iohexoL-300 100 ML VIAL IVP ONE (20:38)
[2023-05-05 21:03] LABS: MUDS CUTOFF CONCENTRATIONS CUTOFF CONC BELOW:
[2023-05-05 21:19] LABS: AMPHETAMINE SCREEN,URINE NEGATIVE (NEGATIVE); BARBITURATE SCREEN,UR NEGATIVE (NEGATIVE); BENZODIAZEPINES SCREEN, URINE NEGATIVE (NEGATIVE); COCAINE SCREEN URINE NEGATIVE (NEGATIVE); METHADONE SCREEN, URINE NEGATIVE (NEGATIVE); METHAMPHETAMINES SCREEN, URINE NEGATIVE (NEGATIVE); OPIATE SCREEN, URINE POSITIVE (NEGATIVE); OXYCODONE SCREEN, URINE NEGATIVE (NEGATIVE); PROPOXYPHENE SCREEN, URINE NEGATIVE (NEGATIVE); THC CANNABINOID SCREEN, URINE NEGATIVE (NEGATIVE); TRICYCLIC ANTIDEPRESSANT,URINE NEGATIVE (NEGATIVE)
[2023-05-06] MEDS: SODIUM CHLORIDE FLUSH 0.9% 10 ML SYRINGE IVP SCH ×3 (00:11→21:44)
[2023-05-06 05:03] LABS: BASOPHILS % (AUTO) 0.4 %; HCT - HEMATOCRIT 40.2 % (42.0-52.0); HGB - HEMOGLOBIN 14.2 g/dL (14.0-18.0); LYMPHOCYTES % (AUTO) 1.2 %; MEAN CORPUSCULAR HEMOGLOBIN 33.5 pg (27.0-31.0); MEAN CORPUSCULAR HGB CONC 35.3 g/dL (32.0-36.0); MEAN CORPUSCULAR VOLUME 94.8 fL (80.0-94.0); MEAN PLATELET VOLUME 11.5 fL (7.4-11.4); MONOCYTES % (AUTO) 1.8 %; NEUTROPHILS % (AUTO) 93.5 %; PLT - PLATELET COUNT 50 10^3/uL (130-450); RED BLOOD COUNT 4.24 10^6/uL (4.70-6.10); RED CELL DISTRIBUTION WIDTH 13.8 % (12.0-15.0); WHITE BLOOD COUNT 29.7 x10^3/uL (4.8-10.8)
[2023-05-06 05:07] LABS: ABNORMAL LYMPHS % (MANUAL) 0 %
[2023-05-06 05:14] LABS: CALCIUM 8.9 mg/dL (8.5-10.3); CREATININE 1.2 mg/dL (0.6-1.3); POTASSIUM 4.1 mmol/L (3.5-4.5)
[2023-05-06 05:25] LABS: BAND NEUTROPHILS % (MANUAL) 25 %; DIFFERENTIAL COMMENT MANUAL DIFFERENTIAL; LYMPHOCYTES # (MANUAL) 0.6 10^3/uL (1.5-3.5); LYMPHOCYTES % (MANUAL) 2 %; MONOCYTES # (MANUAL) 0.3 10^3/uL (0.0-1.0); NEUTROPHILS # (MANUAL) 28.8 10^3/uL (1.5-6.6); PLATELET ESTIMATE, MANUAL DECREASED (<130,000) (NORMAL); PLATELET MORPHOLOGY NORMAL APPEARANCE (NORMAL); RBC MORPHOLOGY (MULTIPLE) NORMAL APPEARANCE (NORMAL); WBC MORPHOLOGY (MULTIPLE) NORMAL APPEARANCE (NORMAL)
[2023-05-06] MEDS: VANCOMYCIN INJ 1 GM in SODIUM CHLORIDE 0.9% 250 ML IV SCH ×2 (08:55→19:57)
[2023-05-06] MEDS ORDERED: cefTRIAXone 1 GM in SODIUM CHLORIDE 0.9% MINIBAG 100 ML IV SCH ×2 (09:00→11:00)
[2023-05-06] MEDS ORDERED: ENOXAPARIN 40 MG/0.4 ML SYRINGE SUBQ SCH (09:00)
--- NOTE | 2023-05-06 10:51 | PHARMACY PROGRESS NOTE ---
- Best Possible Medication History Admit Date and Time: 05/05/23 1544 Processed by: Pharmacy Medication History completed: Yes Patient Interview: Completed Secondary Source(s): Other family member As the person ultimately responsible for medication therapy, providers are able to order a medication from an existing home medication list in [facility] via the "Reconcile Routine" prior to Confirmation of that medication by lab support service tech. Such practice is discouraged except when the physician, in their clinical judgment, deems that a medical need exists for a medication without regard to previous use.
--- NOTE | 2023-05-06 12:12 | PROVIDER PROGRESS NOTE ---
Subjective - Prog Note Date Prog Note Date: 05/06/23 Prog Note Time: 12:10 - Subjective Subjective: Overnight there are no new events. He has had no fevers. Heart rate 101 at around 10 PM. At that time blood pressure 119/66. Over the course of the socorro rickey his blood pressure has dropped. He was 109/58 at midnight, 101/58 at 6 in the morning, and 92/59 first thing this morning when I went into woke him up. He continues to deny any problems. He denies eustachian tube dysfunction, sore throat. Has no problems eating his breakfast and he is enjoyed it thoroughly. No cough, congestion. No chest pain. Abdomen is soft, and he denies any pain. Denies urgency, frequency, dysuria. No further diarrhea between yesterday and today. Nursing reported that he has a "new rash of small red dots". When I went in to go reexamine the patient, it is the same rash she had yesterday. Mom is very specific and saying that that rash has been present for 2 years ever since he went to go visit his father in [place]. Rash is also present in the left axilla and that seems to be getting slightly worse. But again present for months now and part of the rash in his legs and feet from when he went to [place]. No new mental status problems. Current Medications - Current Medications Current Medications: Active Medications Acetaminophen (Acetaminophen 325 Mg Tablet) 650 mg PO Q4HR PRN PRN Reason: Pain 1 to 4, or Fever Vancomycin HCl 1 gm/ Sodium (Chloride) 250 mls @ 167 mls/hr IV Q12H IHRAL Last Infusion: 05/06/23 10:52 Dose: Infused Ceftriaxone Sodium 2 gm/ (Sodium Chloride) 100 mls @ 200 mls/hr IV BID HIRAL Ceftriaxone Sodium 1 gm/ (Sodium Chloride) 100 mls @ 200 mls/hr IV ONCE HIRAL Stop: 05/06/23 13:00 Last Admin: 05/06/23 11:13 Dose: 200 mls/hr Ondansetron HCl (Ondansetron Odt 4 Mg Tablet) 4 mg TL Q6HR PRN PRN Reason: Nausea / Vomiting Ondansetron HCl (Ondansetron 4 Mg/2 Ml Vial) 4 mg IVP Q6HR PRN PRN Reason: Nausea / Vomiting Oxycodone HCl (Oxycodone 5 Mg Tablet) 5 mg PO Q4HR PRN PRN Reason: Pain 5 to 7 Sodium Chloride (Sodium Chloride Flush 0.9% 10 Ml Syringe) 10 ml IVP PRN PRN PRN Reason: NEEDED PER PROVIDER ORDERS Sodium Chloride (Sodium Chloride Flush 0.9% 10 Ml Syringe) 10 ml IVP 0100,0900,1700 HIRAL Last Admin: 05/06/23 08:17 Dose: 10 ml Clotrimazole/Betamethasone Crm [Lotrisone Cream] 1 applic TOP BID 05/06/23 Multivitamin [Theragran] 1 each PO DAILY 05/06/23 Objective - Vital Signs/Intake & Output Reviewed Vital Signs: Yes Vital Signs: Vital Signs x48h Temp Pulse Resp BP Pulse Ox 05/06/23 09:11 36.1 C L 92 18 92/59 L 94 05/06/23 05:59 37.2 C 86 20 101/58 L 93 Intake & Output: Intake & Output 05/03/23 05/04/23 05/05/23 05/06/23 23:59 23:59 23:59 23:59 Intake Total 2971.667 1698.333 Output Total 50 Balance 2971.667 1648.333 - Objective General Appearance: positive: No acute distress, Alert, Other (Deedee white male with trisomy 21 features, sitting up in chair, ate his breakfast and is in no acute distress. Mom spent the night.) Eyes Bilateral: positive: PERRL, EOMI ENT: positive: Pharynx nml, No signs of dehydration Neck: positive: No JVD, Other (I still feels that the left side of his neck has fullness that is over muscles and more firm than the right. But soft tissue CT of the neck last night does not demonstrate any abnormalities at all. He does have opacification of the right maxillary sinus) Respiratory: positive: No respiratory distress. negative: Wheezes, Rales, Rhonchi Cardiovascular: positive: Regular rate & rhythm Abdomen: positive: Non-tender, No organomegaly, Nml bowel sounds Skin: positive: Warm, Dry, Skin rash (.Rash that is large and extensive in the left axilla compatible with ringworm the same rash on his ankles, shins and calves is present from last night to today. Small 2 to 3 mm pinkish areas. No blanching. Palpable. Also hyperpigmentation of venous stasis but no open wounds) Extremities: positive: Full ROM, No pedal edema Neurologic/Psychiatric: positive: Oriented x3, CN's nml (2-12), Motor nml - Lab Results Fish Bones: 05/06/23 04:39 05/06/23 04:39 Other Labs: Lab Results x24hrs 05/06/23 05/06/23 05/05/23 Range/Units 04:39 04:39 16:50 WBC 29.7 H (4.8-10.8) x10^3/uL RBC 4.24 L (4.70-6.10) 10^6/uL Hgb 14.2 (14.0-18.0) g/dL Hct 40.2 L (42.0-52.0) % MCV 94.8 H (80.0-94.0) fL MCH 33.5 H (27.0-31.0) pg MCHC 35.3 (32.0-36.0) g/dL RDW 13.8 (12.0-15.0) % Plt Count 50 L (130-450) 10^3/uL MPV 11.5 H (7.4-11.4) fL Neut # (Auto) Not Reportable (1.5-6.6) 10^3/uL Lymph # (Auto) Not Reportable (1.5-3.5) 10^3/uL Webb # (Auto) Not Reportable (0.0-1.0) 10^3/uL Eos # (Auto) Not Reportable (0.0-0.7) 10^3/uL Baso # (Auto) Not Reportable (0.0-0.1) 10^3/uL Absolute Nucleated RBC Not Reportable x10^3/uL Total Counted 100 Band Neuts % (Manual) 25 H (0 - 10) % Abnorm Lymph % (Manual) 0 % Nucleated RBC % Not Reportable /100WBC Neutrophils # (Manual) 28.8 H (1.5-6.6) 10^3/uL Lymphocytes # (Manual) 0.6 L (1.5-3.5) 10^3/uL Monocytes # (Manual) 0.3 (0.0-1.0) 10^3/uL Eosinophils # (Manual) 0.0 (0-0.7) 10^3/uL Basophils # (Manual) 0.0 (0-0.1) 10^3/uL Differential Comment MANUAL DIFFERENTIAL WBC Morphology NORMAL APPEARANCE (NORMAL) Platelet Estimate DECREASED (<130,000) (NORMAL) Platelet Morphology NORMAL APPEARANCE (NORMAL) RBC Morph Micro Appear NORMAL APPEARANCE (NORMAL) Sodium 140 (135-145) mmol/L Potassium 4.1 (3.5-4.5) mmol/L Chloride 111 (101-111) mmol/L Carbon Dioxide 23 (21-32) mmol/L Anion Gap 6.0 (6-13) BUN 18 (6-20) mg/dL Creatinine 1.2 (0.6-1.3) mg/dL Estimated GFR (MDRD) 63 L (>89) Glucose 148 H (74-104) mg/dL Lactic Acid (0.5-2.2) mmol/L Calcium 8.9 (8.5-10.3) mg/dL Total Bilirubin (0.2-1.0) mg/dL AST (10-42) IU/L ALT (10-60) IU/L Alkaline Phosphatase (42-121) IU/L Total Protein (6.4-8.9) g/dL Albumin (3.2-5.5) g/dL Globulin (2.1-4.2) g/dL Albumin/Globulin Ratio (1.0-2.2) Urine Color Urine Clarity (CLEAR) Urine pH (5.0-7.5) PH Ur Specific [place] (1.002-1.030) Urine Protein (NEGATIVE) mg/dL Urine Glucose (UA) (NEGATIVE) mg/dL Urine Ketones (NEGATIVE) mg/dL Urine Occult Blood (NEGATIVE) Urine Nitrite (NEGATIVE) Urine Bilirubin (NEGATIVE) Urine Urobilinogen (NORMAL) E.U./dL Ur Leukocyte Esterase (NEGATIVE) Urine RBC (0-5) /HPF Urine WBC (0-3) /HPF Ur Squamous Epith Cells (<= Few) Urine Bacteria (None Seen) /HPF Urine Mucus Urine Culture Comments CSF Color (COLORLESS) CSF Clarity (CLEAR) Xanthrochromic (ABSENT) CSF WBC (0-5) /mm^3 CSF RBC (0-1) /mm^3 CSF Cell Count Tube # CSF Glucose (45-70) mg/dL CSF Total Protein (15-45) mg/dL Nasal Adenovirus (PCR) Nasal B. parapertussis DNA (PCR) Nasal Coronavir 229E PCR Nasal Coronavir HKU1 PCR Nasal Coronavir NL63 PCR Nasal Coronavir OC43 PCR Nasal Enterovir/Rhinovir PCR Nasal Influenza B PCR Nasal Influenza A PCR Nasal Parainfluen 1 PCR Nasal Parainfluen 2 PCR Nasal Parainfluen 3 PCR Nasal Parainfluen 4 PCR Nasal RSV (PCR) Nasal B.pertussis DNA PCR Nasal C.pneumoniae (PCR) Adolph Human Metapneumo PCR Nasal M.pneumoniae (PCR) Nasal SARS-CoV-2 (PCR) Urine Opiates Screen POSITIVE H (NEGATIVE) Ur Oxycodone Screen NEGATIVE (NEGATIVE) Urine Methadone Screen NEGATIVE (NEGATIVE) Ur Propoxyphene Screen NEGATIVE (NEGATIVE) Ur Barbiturates Screen NEGATIVE (NEGATIVE) Ur Tricyclics Screen NEGATIVE (NEGATIVE) Ur Phencyclidine Scrn NEGATIVE (NEGATIVE) Ur Amphetamine Screen NEGATIVE (NEGATIVE) U Methamphetamines Scrn NEGATIVE (NEGATIVE) U Benzodiazepines Scrn NEGATIVE (NEGATIVE) Urine Cocaine Screen NEGATIVE (NEGATIVE) U Cannabinoids Screen NEGATIVE (NEGATIVE) 05/05/23 05/05/23 05/05/23 Range/Units 16:50 15:58 14:35 WBC (4.8-10.8) x10^3/uL RBC (4.70-6.10) 10^6/uL Hgb (14.0-18.0) g/dL Hct (42.0-52.0) % MCV (80.0-94.0) fL MCH (27.0-31.0) pg MCHC (32.0-36.0) g/dL RDW (12.0-15.0) % Plt Count (130-450) 10^3/uL MPV (7.4-11.4) fL Neut # (Auto) (1.5-6.6) 10^3/uL Lymph # (Auto) (1.5-3.5) 10^3/uL Webb # (Auto) (0.0-1.0) 10^3/uL Eos # (Auto) (0.0-0.7) 10^3/uL Baso # (Auto) (0.0-0.1) 10^3/uL Absolute Nucleated RBC x10^3/uL Total Counted Band Neuts % (Manual) (0 - 10) % Abnorm Lymph % (Manual) % Nucleated RBC % /100WBC Neutrophils # (Manual) (1.5-6.6) 10^3/uL Lymphocytes # (Manual) (1.5-3.5) 10^3/uL Monocytes # (Manual) (0.0-1.0) 10^3/uL Eosinophils # (Manual) (0-0.7) 10^3/uL Basophils # (Manual) (0-0.1) 10^3/uL Differential Comment WBC Morphology (NORMAL) Platelet Estimate (NORMAL) Platelet Morphology (NORMAL) RBC Morph Micro Appear (NORMAL) Sodium (135-145) mmol/L Potassium (3.5-4.5) mmol/L Chloride (101-111) mmol/L Carbon Dioxide (21-32) mmol/L Anion Gap (6-13) BUN (6-20) mg/dL Creatinine (0.6-1.3) mg/dL Estimated GFR (MDRD) (>89) Glucose (74-104) mg/dL Lactic Acid 1.8 (0.5-2.2) mmol/L Calcium (8.5-10.3) mg/dL Total Bilirubin (0.2-1.0) mg/dL AST (10-42) IU/L ALT (10-60) IU/L Alkaline Phosphatase (42-121) IU/L Total Protein (6.4-8.9) g/dL Albumin (3.2-5.5) g/dL Globulin (2.1-4.2) g/dL Albumin/Globulin Ratio (1.0-2.2) Urine Color YELLOW Urine Clarity HAZY (CLEAR) Urine pH 6.0 (5.0-7.5) PH Ur Specific [place] 1.020 (1.002-1.030) Urine Protein NEGATIVE (NEGATIVE) mg/dL Urine Glucose (UA) NEGATIVE (NEGATIVE) mg/dL Urine Ketones NEGATIVE (NEGATIVE) mg/dL Urine Occult Blood NEGATIVE (NEGATIVE) Urine Nitrite NEGATIVE (NEGATIVE) Urine Bilirubin NEGATIVE (NEGATIVE) Urine Urobilinogen 0.2 (NORMAL) (NORMAL) E.U./dL Ur Leukocyte Esterase SMALL H (NEGATIVE) Urine RBC 0-5 (0-5) /HPF Urine WBC >25 H (0-3) /HPF Ur Squamous Epith Cells RARE Squamous (<= Few) Urine Bacteria Many H (None Seen) /HPF Urine Mucus Few Strands Urine Culture Comments INDICATED CSF Color (COLORLESS) CSF Clarity (CLEAR) Xanthrochromic (ABSENT) CSF WBC (0-5) /mm^3 CSF RBC (0-1) /mm^3 CSF Cell Count Tube # CSF Glucose (45-70) mg/dL CSF Total Protein (15-45) mg/dL Nasal Adenovirus (PCR) NOT DETECTED Nasal B. parapertussis DNA (PCR) NOT DETECTED Nasal Coronavir 229E PCR NOT DETECTED Nasal Coronavir HKU1 PCR NOT DETECTED Nasal Coronavir NL63 PCR NOT DETECTED Nasal Coronavir OC43 PCR NOT DETECTED Nasal Enterovir/Rhinovir PCR NOT DETECTED Nasal Influenza B PCR NOT DETECTED Nasal Influenza A PCR NOT DETECTED Nasal Parainfluen 1 PCR NOT DETECTED Nasal Parainfluen 2 PCR NOT DETECTED Nasal Parainfluen 3 PCR NOT DETECTED Nasal Parainfluen 4 PCR NOT DETECTED Nasal RSV (PCR) NOT DETECTED Nasal B.pertussis DNA PCR NOT DETECTED Nasal C.pneumoniae (PCR) NOT DETECTED Adolph Human Metapneumo PCR NOT DETECTED Nasal M.pneumoniae (PCR) NOT DETECTED Nasal SARS-CoV-2 (PCR) NOT DETECTED Urine Opiates Screen (NEGATIVE) Ur Oxycodone Screen (NEGATIVE) Urine Methadone Screen (NEGATIVE) Ur Propoxyphene Screen (NEGATIVE) Ur Barbiturates Screen (NEGATIVE) Ur Tricyclics Screen (NEGATIVE) Ur Phencyclidine Scrn (NEGATIVE) Ur Amphetamine Screen (NEGATIVE) U Methamphetamines Scrn (NEGATIVE) U Benzodiazepines Scrn (NEGATIVE) Urine Cocaine Screen (NEGATIVE) U Cannabinoids Screen (NEGATIVE) 05/05/23 05/05/23 05/05/23 Range/Units 14:10 12:31 12:31 WBC (4.8-10.8) x10^3/uL RBC (4.70-6.10) 10^6/uL Hgb (14.0-18.0) g/dL Hct (42.0-52.0) % MCV (80.0-94.0) fL MCH (27.0-31.0) pg MCHC (32.0-36.0) g/dL RDW (12.0-15.0) % Plt Count (130-450) 10^3/uL MPV (7.4-11.4) fL Neut # (Auto) (1.5-6.6) 10^3/uL Lymph # (Auto) (1.5-3.5) 10^3/uL Webb # (Auto) (0.0-1.0) 10^3/uL Eos # (Auto) (0.0-0.7) 10^3/uL Baso # (Auto) (0.0-0.1) 10^3/uL Absolute Nucleated RBC x10^3/uL Total Counted Band Neuts % (Manual) (0 - 10) % Abnorm Lymph % (Manual) % Nucleated RBC % /100WBC Neutrophils # (Manual) (1.5-6.6) 10^3/uL Lymphocytes # (Manual) (1.5-3.5) 10^3/uL Monocytes # (Manual) (0.0-1.0) 10^3/uL Eosinophils # (Manual) (0-0.7) 10^3/uL Basophils # (Manual) (0-0.1) 10^3/uL Differential Comment WBC Morphology (NORMAL) Platelet Estimate (NORMAL) Platelet Morphology (NORMAL) RBC Morph Micro Appear (NORMAL) Sodium 140 (135-145) mmol/L Potassium 3.5 (3.5-4.5) mmol/L Chloride 106 (101-111) mmol/L Carbon Dioxide 28 (21-32) mmol/L Anion Gap 6.0 (6-13) BUN 22 H (6-20) mg/dL Creatinine 1.6 H (0.6-1.3) mg/dL Estimated GFR (MDRD) 45 L (>89) Glucose 105 H (74-104) mg/dL Lactic Acid 2.7 H (0.5-2.2) mmol/L Calcium 9.2 (8.5-10.3) mg/dL Total Bilirubin 0.5 (0.2-1.0) mg/dL AST 21 (10-42) IU/L ALT 18 (10-60) IU/L Alkaline Phosphatase 78 (42-121) IU/L Total Protein 6.4 (6.4-8.9) g/dL Albumin 3.9 (3.2-5.5) g/dL Globulin 2.5 (2.1-4.2) g/dL Albumin/Globulin Ratio 1.6 (1.0-2.2) Urine Color Urine Clarity (CLEAR) Urine pH (5.0-7.5) PH Ur Specific [place] (1.002-1.030) Urine Protein (NEGATIVE) mg/dL Urine Glucose (UA) (NEGATIVE) mg/dL Urine Ketones (NEGATIVE) mg/dL Urine Occult Blood (NEGATIVE) Urine Nitrite (NEGATIVE) Urine Bilirubin (NEGATIVE) Urine Urobilinogen (NORMAL) E.U./dL Ur Leukocyte Esterase (NEGATIVE) Urine RBC (0-5) /HPF Urine WBC (0-3) /HPF Ur Squamous Epith Cells (<= Few) Urine Bacteria (None Seen) /HPF Urine Mucus Urine Culture Comments CSF Color COLORLESS (COLORLESS) CSF Clarity CLEAR (CLEAR) Xanthrochromic ABSENT (ABSENT) CSF WBC 3 (0-5) /mm^3 CSF RBC 275 H (0-1) /mm^3 CSF Cell Count Tube # CSF TUBE# 3 CSF Glucose 78 H (45-70) mg/dL CSF Total Protein 58 H (15-45) mg/dL Nasal Adenovirus (PCR) Nasal B. parapertussis DNA (PCR) Nasal Coronavir 229E PCR Nasal Coronavir HKU1 PCR Nasal Coronavir NL63 PCR Nasal Coronavir OC43 PCR Nasal Enterovir/Rhinovir PCR Nasal Influenza B PCR Nasal Influenza A PCR Nasal Parainfluen 1 PCR Nasal Parainfluen 2 PCR Nasal Parainfluen 3 PCR Nasal Parainfluen 4 PCR Nasal RSV (PCR) Nasal B.pertussis DNA PCR Nasal C.pneumoniae (PCR) Adolph Human Metapneumo PCR Nasal M.pneumoniae (PCR) Nasal SARS-CoV-2 (PCR) Urine Opiates Screen (NEGATIVE) Ur Oxycodone Screen (NEGATIVE) Urine Methadone Screen (NEGATIVE) Ur Propoxyphene Screen (NEGATIVE) Ur Barbiturates Screen (NEGATIVE) Ur Tricyclics Screen (NEGATIVE) Ur Phencyclidine Scrn (NEGATIVE) Ur Amphetamine Screen (NEGATIVE) U Methamphetamines Scrn (NEGATIVE) U Benzodiazepines Scrn (NEGATIVE) Urine Cocaine Screen (NEGATIVE) U Cannabinoids Screen (NEGATIVE) 05/05/23 Range/Units 12:31 WBC 7.3 (4.8-10.8) x10^3/uL RBC 4.91 (4.70-6.10) 10^6/uL Hgb 16.2 (14.0-18.0) g/dL Hct 46.5 (42.0-52.0) % MCV 94.7 H (80.0-94.0) fL MCH 33.0 H (27.0-31.0) pg MCHC 34.8 (32.0-36.0) g/dL RDW 13.6 (12.0-15.0) % Plt Count 45 L (130-450) 10^3/uL MPV 11.4 (7.4-11.4) fL Neut # (Auto) 7.1 H (1.5-6.6) 10^3/uL Lymph # (Auto) 0.2 L (1.5-3.5) 10^3/uL Webb # (Auto) 0.0 (0.0-1.0) 10^3/uL Eos # (Auto) 0.0 (0.0-0.7) 10^3/uL Baso # (Auto) 0.0 (0.0-0.1) 10^3/uL Absolute Nucleated RBC 0.00 x10^3/uL Total Counted Band Neuts % (Manual) (0 - 10) % Abnorm Lymph % (Manual) % Nucleated RBC % 0.0 /100WBC Neutrophils # (Manual) (1.5-6.6) 10^3/uL Lymphocytes # (Manual) (1.5-3.5) 10^3/uL Monocytes # (Manual) (0.0-1.0) 10^3/uL Eosinophils # (Manual) (0-0.7) 10^3/uL Basophils # (Manual) (0-0.1) 10^3/uL Differential Comment WBC Morphology (NORMAL) Platelet Estimate (NORMAL) Platelet Morphology (NORMAL) RBC Morph Micro Appear (NORMAL) Sodium (135-145) mmol/L Potassium (3.5-4.5) mmol/L Chloride (101-111) mmol/L Carbon Dioxide (21-32) mmol/L Anion Gap (6-13) BUN (6-20) mg/dL Creatinine (0.6-1.3) mg/dL Estimated GFR (MDRD) (>89) Glucose (74-104) mg/dL Lactic Acid (0.5-2.2) mmol/L Calcium (8.5-10.3) mg/dL Total Bilirubin (0.2-1.0) mg/dL AST (10-42) IU/L ALT (10-60) IU/L Alkaline Phosphatase (42-121) IU/L Total Protein (6.4-8.9) g/dL Albumin (3.2-5.5) g/dL Globulin (2.1-4.2) g/dL Albumin/Globulin Ratio (1.0-2.2) Urine Color Urine Clarity (CLEAR) Urine pH (5.0-7.5) PH Ur Specific [place] (1.002-1.030) Urine Protein (NEGATIVE) mg/dL Urine Glucose (UA) (NEGATIVE) mg/dL Urine Ketones (NEGATIVE) mg/dL Urine Occult Blood (NEGATIVE) Urine Nitrite (NEGATIVE) Urine Bilirubin (NEGATIVE) Urine Urobilinogen (NORMAL) E.U./dL Ur Leukocyte Esterase (NEGATIVE) Urine RBC (0-5) /HPF Urine WBC (0-3) /HPF Ur Squamous Epith Cells (<= Few) Urine Bacteria (None Seen) /HPF Urine Mucus Urine Culture Comments CSF Color (COLORLESS) CSF Clarity (CLEAR) Xanthrochromic (ABSENT) CSF WBC (0-5) /mm^3 CSF RBC (0-1) /mm^3 CSF Cell Count Tube # CSF Glucose (45-70) mg/dL CSF Total Protein (15-45) mg/dL Nasal Adenovirus (PCR) Nasal B. parapertussis DNA (PCR) Nasal Coronavir 229E PCR Nasal Coronavir HKU1 PCR Nasal Coronavir NL63 PCR Nasal Coronavir OC43 PCR Nasal Enterovir/Rhinovir PCR Nasal Influenza B PCR Nasal Influenza A PCR Nasal Parainfluen 1 PCR Nasal Parainfluen 2 PCR Nasal Parainfluen 3 PCR Nasal Parainfluen 4 PCR Nasal RSV (PCR) Nasal B.pertussis DNA PCR Nasal C.pneumoniae (PCR) Adolph Human Metapneumo PCR Nasal M.pneumoniae (PCR) Nasal SARS-CoV-2 (PCR) Urine Opiates Screen (NEGATIVE) Ur Oxycodone Screen (NEGATIVE) Urine Methadone Screen (NEGATIVE) Ur Propoxyphene Screen (NEGATIVE) Ur Barbiturates Screen (NEGATIVE) Ur Tricyclics Screen (NEGATIVE) Ur Phencyclidine Scrn (NEGATIVE) Ur Amphetamine Screen (NEGATIVE) U Methamphetamines Scrn (NEGATIVE) U Benzodiazepines Scrn (NEGATIVE) Urine Cocaine Screen (NEGATIVE) U Cannabinoids Screen (NEGATIVE) ABX Reporting Has patient been on IV antibiotics over the past 48 hours?: Yes Assessment/Plan - Problem List (1) Hypotension Impression: This is in context of a patient had sudden nausea vomiting and diarrhea. But only 1 episode. He had temporary confusion and sleepiness with this. My thought process is that he is has an infection manifested as neck pain and lethargy and not GI bleed, anemia, dehydration. He does have thrombocytopenia. Lactic acid was elevated and returned to normal after IVF and empiric abx. I did not find definitive source of infection in that chest x-ray negative for pneumonia, lung exam negative, abdominal exam is benign, but urinalysis does have some evidence of infection. And a lumbar puncture was done because of the neck stiffness and that was negative. I found soft tissue fullness in the left neck. It's not painful. He can flex and extend his neck, and turn his head to the right and left. CT of the neck is negative for mass/infection has shows only right maxillary opacification. So I am down 2 sources being possibly a UTI or sinu sitis. He received empiric IV antibiotics last night. This morning when the nurse initially told me that he had a new rash I immediately increased his Rocephin to 2 g twice daily worried about meningococcal. But on reexamination it is the same rash he has always had. He keeps on denying that he feels sick. But blood pressure is still low. Heart rate has improved. He was over 100 last night and this morning he is in the 80s to mid 90s. Unfortunately his white cell count has risen unexpectedly. It was 7.3 on admission and 29.7 this morning. Platelets are still low. Lactic acid did go fr om 2.7-1.8 with treatment. His creatinine was 1.6 and now 1.2. As such I am still moving forward with a diagnosis of infection as the cause of his hypotension and sudden change in status. But he is improving. Urine for toxicology screen was positive only for opiates. Plan: Change observation status to inpatient status. Continue empiric antibiotics with Rocephin and vancomycin for now until CSF cultures come back Continue Rocephin for possible UTI as well I will discontinue his Lovenox in the face of the thrombocytopenia. But I need to find out if this is old or new. In 2018 his platelets were normal. He is followed by a Dr[facility]. I will call and see if I can get blood work from the [employer] system at [facility]. I will continue to follow the platelets on a daily basis. Consider ITP. Qualifiers: Hypotension type: unspecified hypotension type Qualified Code(s): I95.9 - Hypotension, unspecified (2) Abnormal urine Conclusion/Plan: Scant squamous cells. But many bacteria. We will treat this as a UTI until culture comes back. (3) Neck fullness Conclusion/Plan: My exam confirms mom's worry. It is Unilateral. Left side. No discrete adenopathy in the supraclavicular fossa, preauricular/posterior auricular area. He is chewing and swallowing normally and he repeatedly says that nothing hurts on that side. But mom feels that this is new. She is never noted that he had that type of fullness before. However, CT is negative. I can only attribute this to just anatomical variation than (4) Chronic kidney disease Conclusion/Plan: Baseline creatinine is 1.3. GFR usually in the high 40s. Today's creatinine is 1.6 with a GFR 45. As such he appears to have chronic kidney disease with mild exacerbation. Antecedent history gives me no insight as to why he may be dehydrated. His p.o. intake has been normal, and he has been essentially "normal" to mom as far she knows. Laboratory Tests 05/05/23 05/06/23 12:31 04:39 Creatinine 1.6 H 1.2 After IV fluids and antibiotics, it is normal. Plan: We will stop IV fluids, and push p.o. fluids. He is eating and swallowing normally. Continue to watch creatinine for vancomycin toxicity Qualifiers: Chronic kidney disease stage: stage 3 (moderate) (5) Ring worm rash in L axilla Clotrimazole cream twice a day Qualifiers: Qualified Code(s): I95.9 - Hypotension, unspecified
[2023-05-06] MEDS ORDERED: VANCOMYCIN INJ 1.5 GM in SODIUM CHLORIDE 0.9% 500 ML IV SCH (14:00)
[2023-05-06] MEDS: CLOTRIMAZOLE 1% CREAM 15 GM TUBE TOP SCH ×2 (14:27→19:57)
[2023-05-06] MEDS ORDERED: cefTRIAXone 2 GM in SODIUM CHLORIDE 0.9% MINIBAG 100 ML IV SCH (21:00)
[2023-05-07] MEDS: SODIUM CHLORIDE FLUSH 0.9% 10 ML SYRINGE IVP SCH ×3 (00:51→20:11)
[2023-05-07 05:25] LABS: BASOPHILS # (AUTO) 0.1 10^3/uL (0.0-0.1); BASOPHILS % (AUTO) 0.4 %; EOSINOPHILS % (AUTO) 0.2 %; HCT - HEMATOCRIT 40.7 % (42.0-52.0); HGB - HEMOGLOBIN 14.2 g/dL (14.0-18.0); LYMPHOCYTES # (AUTO) 0.6 10^3/uL (1.5-3.5); LYMPHOCYTES % (AUTO) 3.7 %; MEAN CORPUSCULAR HEMOGLOBIN 32.8 pg (27.0-31.0); MEAN CORPUSCULAR HGB CONC 34.9 g/dL (32.0-36.0); MEAN PLATELET VOLUME 12.6 fL (7.4-11.4); MONOCYTES # (AUTO) 0.2 10^3/uL (0.0-1.0); MONOCYTES % (AUTO) 1.4 %; NEUTROPHILS # (AUTO) 15.8 10^3/uL (1.5-6.6); NEUTROPHILS % (AUTO) 93.5 %; PLT - PLATELET COUNT 36 10^3/uL (130-450); RED BLOOD COUNT 4.33 10^6/uL (4.70-6.10); WHITE BLOOD COUNT 16.9 x10^3/uL (4.8-10.8)
[2023-05-07 05:43] LABS: CALCIUM 8.9 mg/dL (8.5-10.3); CREATININE 1.1 mg/dL (0.6-1.3)
[2023-05-07] MEDS: VANCOMYCIN INJ 1 GM in SODIUM CHLORIDE 0.9% 250 ML IV SCH (07:40)
[2023-05-07] MEDS ORDERED: cefTRIAXone 2 GM in SODIUM CHLORIDE 0.9% MINIBAG 100 ML IV SCH (10:00)
[2023-05-07] MEDS: polyethylene glycoL 3350 17 GM PACKET PO SCH (10:48)
[2023-05-07] MEDS: CLOTRIMAZOLE 1% CREAM 15 GM TUBE TOP SCH ×2 (10:49→20:11)
--- NOTE | 2023-05-07 16:12 | PROVIDER PROGRESS NOTE ---
Subjective - Prog Note Date Prog Note Date: 05/07/23 Prog Note Time: 16:10 - Subjective Pt reports feeling: No change Subjective: He is a raul man. But he completely mitigates any complaints he may have. Since admission, after being in the ER, he is denied a review of systems on a daily basis. He denies eye pain, sore throat, eustachian tube dysfunction. No ear pain. No mouth pain. No problems with swallowing. Denies cough, congestion. No pleuritic chest pain. Denies abdominal discomfort. Diarrhea has not been recurrent. He denies urgency, frequency, dysuria. He has been eating his food well. He has not had a fever throughout his entire stay. His last episode of hypotension was yesterday at 90/55. He has not had any recent dental work. Blood cultures in 1 out of 2 bottles are positive for strep viridans. Current Medications - Current Medications Current Medications: Active Medications Acetaminophen (Acetaminophen 325 Mg Tablet) 650 mg PO Q4HR PRN PRN Reason: Pain 1 to 4, or Fever Clotrimazole (Clotrimazole 1% Cream 15 Gm Tube) 1 applic TOP BID [facility] Last Admin: 05/07/23 10:49 Dose: 1 applic Ceftriaxone Sodium 2 gm/ (Sodium Chloride) 100 mls @ 200 mls/hr IV BID [facility] Last Infusion: 05/07/23 13:16 Dose: Infused Ondansetron HCl (Ondansetron Odt 4 Mg Tablet) 4 mg TL Q6HR PRN PRN Reason: Nausea / Vomiting Ondansetron HCl (Ondansetron 4 Mg/2 Ml Vial) 4 mg IVP Q6HR PRN PRN Reason: Nausea / Vomiting Oxycodone HCl (Oxycodone 5 Mg Tablet) 5 mg PO Q4HR PRN PRN Reason: Pain 5 to 7 Polyethylene Glycol (Polyethylene Glycol 3350 17 Gm Packet) 17 gm PO DAILY [facility] Last Admin: 05/07/23 10:48 Dose: 17 gm Sodium Chloride (Sodium Chloride Flush 0.9% 10 Ml Syringe) 10 ml IVP PRN PRN PRN Reason: NEEDED PER PROVIDER ORDERS Sodium Chloride (Sodium Chloride Flush 0.9% 10 Ml Syringe) 10 ml IVP 0100,0900,1700 [facility] Last Admin: 05/07/23 10:49 Dose: 10 ml Clotrimazole/Betamethasone Crm [Lotrisone Cream] 1 applic TOP BID 05/06/23 Multivitamin [Theragran] 1 each PO DAILY 05/06/23 Objective - Vital Signs/Intake & Output Reviewed Vital Signs: Yes Intake & Output: Intake & Output 05/04/23 05/05/23 05/06/23 05/07/23 23:59 23:59 23:59 23:59 Intake Total 2971.667 3118.333 1270 Output Total 150 Balance 2971.667 2968.333 1270 - Objective General Appearance: positive: No acute distress, Alert, Other (White male looks stated age, with facial features and body habitus of trisomy 21.Mom has stayed every night with him. She is at the bedside.) Eyes Bilateral: positive: PERRL, EOMI ENT: positive: Pharynx nml, No signs of dehydration. negative: Purulent nasal drainage, Pharyngeal erythema, Oral lesions Neck: positive: No JVD, Other (Left neck fullness, muscle included, still present. Not painful. Able to flex extend and turn his head to the right or left). negative: Stiff neck Respiratory: positive: No respiratory distress. negative: Wheezes, Rales, Rhonchi Cardiovascular: positive: Regular rate & rhythm. negative: Systolic murmur Abdomen: positive: Non-tender, No organomegaly, Nml bowel sounds, No distention Skin: positive: Warm, Dry, Skin rash (The tinea rash that is in his left axilla really does extend across his entire chest wall over his pectorals. And a small amount on his right chest wall. The amount of cream we are using did not help this is quite a bit.The rash on his legs is unchanged. 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 But he is alert, oriented. Normal sentences. Able to respond appropriately to my questions.) - Lab Results Fish Bones: 05/07/23 05:06 05/07/23 05:06 Other Labs: Lab Results x24hrs 05/07/23 05/07/23 05/07/23 Range/Units 09:20 05:06 05:06 WBC 16.9 H (4.8-10.8) x10^3/uL RBC 4.33 L (4.70-6.10) 10^6/uL Hgb 14.2 (14.0-18.0) g/dL Hct 40.7 L (42.0-52.0) % MCV 94.0 (80.0-94.0) fL MCH 32.8 H (27.0-31.0) pg MCHC 34.9 (32.0-36.0) g/dL RDW 14.0 (12.0-15.0) % Plt Count 36 L (130-450) 10^3/uL MPV 12.6 H (7.4-11.4) fL Neut # (Auto) 15.8 H (1.5-6.6) 10^3/uL Lymph # (Auto) 0.6 L (1.5-3.5) 10^3/uL [place] # (Auto) 0.2 (0.0-1.0) 10^3/uL Eos # (Auto) 0.0 (0.0-0.7) 10^3/uL Baso # (Auto) 0.1 (0.0-0.1) 10^3/uL Absolute Nucleated RBC 0.00 x10^3/uL Nucleated RBC % 0.0 /100WBC Sodium 139 (135-145) mmol/L Potassium 4.0 (3.5-4.5) mmol/L Chloride 108 (101-111) mmol/L Carbon Dioxide 26 (21-32) mmol/L Anion Gap 5.0 L (6-13) BUN 16 (6-20) mg/dL Creatinine 1.1 (0.6-1.3) mg/dL Estimated GFR (MDRD) 70 L (>89) Glucose 111 H (74-104) mg/dL Calcium 8.9 (8.5-10.3) mg/dL Nasal Screen MRSA (PCR) NEGATIVE (NEGATIVE) ABX Reporting Has patient been on IV antibiotics over the past 48 hours?: Yes Assessment/Plan - Problem List (1) Group B streptococcal UTI Impression: with gram Positive cocci in pairs on blood culture This gentleman presented as hypotension, and a single episode of nausea and vomiting. This was associated with a temporary episode of confusion and lethargy. He had a few episodes of diarrhea. All of Those symptoms have resolved. He did not have a white cell count on admission, but the next day white cell count was 29,000. He was started on empiric antibiotic therapy for possible meningitis after an LP. Blood cultures became positive for gram- positive cocci in pairs today. Urine culture is positive for strep viridans. PCR for the blood cultures tells me what it is not. But it does not tell me what it is. Strep viridans is usually associated with oral bia. I have to think about infective endocarditis, empyema, neutropenic sepsis, or brain abscess. But he has already had soft tissue of the neck. There are no abscesses or lesions. He may have poor dentition. He gives me no manifestations on exam of abscesses. Chest x-ray was negative for pneumonia or air-fluid masses. I am not hearing a murmur. He has had no recent dental work done or teeth cleaning. Plan: Repeat blood cultures today If it is a simple UTI he would get 7 days of treatment. If he was neutropenic, he would get 14 days. I will need to check an echocardiogram for valve disease. If the echo is negative and his repeat blood cultures are negative, I would imagine I can get away with 7-14 days of therapy depending on his WBC and C reactive protein. But if the echo has any valve abnormality and his repeat blood cultures are positive, he will need a transesophageal echo and up to 4 weeks of therapy with pen G. With MRSA swab negative in the nose, And no MRSA on blood or urine, I will be stopping vancomycin. I will also reduce ceftriaxone to 2 g daily. Currently on 2 g twice daily. (2) Abnormal urine Conclusion/Plan: Scant squamous cells. But many bacteria. We will treat this as a UTI until culture comes back. (3) Neck fullness Conclusion/Plan: My exam confirms mom's worry. It is Unilateral. Left side. No discrete adenopathy in the supraclavicular fossa, preauricular/posterior auricular area. He is chewing and swallowing normally and he repeatedly says that nothing hurts on that side. But mom feels that this is new. She is never noted that he had that type of fullness before. However, CT is negative. I can only attribute this to just anatomical variation than (4) Chronic kidney disease Conclusion/Plan: Baseline creatinine is 1.3. GFR usually in the high 40s. Today's creatinine is 1.6 with a GFR 45. As such he appears to have chronic kidney disease with mild exacerbation. Antecedent history gives me no insight as to why he may be dehydrated. His p.o. intake has been normal, and he has been essentially "normal" to mom as far she knows. Laboratory Tests 05/05/23 05/06/23 12:31 04:39 Creatinine 1.6 H 1.2 Laboratory Tests 05/07/23 05:06 BUN 16 Creatinine 1.1 After IV fluids and antibiotics, it is normal. Plan: I stopped IV fluids May 06. We will continue to encourage eating and drinking. Qualifiers: Chronic kidney disease stage: stage 3 (moderate) (5) Ring worm rash in L axilla Clotrimazole cream twice a dayWas ordered May 06. The geographical distribution is large enough that a little tube is not helping his. I will start him on Diflucan. He has not really had any nausea. As such no use for the Zofran that I ordered for as needed. I will switch the Zofran as needed to Compazine as needed due to interaction with Diflucan. Qualifiers: Qualified Code(s): I95.9 - Hypotension, unspecified (3) Hypotension Qualifiers: Qualified Code(s): I95.9 - Hypotension, unspecified
[2023-05-07] MEDS ORDERED: PROCHLORPERAZINE 5 MG TABLET PO PRN (16:27)
[2023-05-07] MEDS: FLUCONAZOLE 100 MG TABLET PO SCH (20:11)
[2023-05-08] MEDS: SODIUM CHLORIDE FLUSH 0.9% 10 ML SYRINGE IVP SCH ×3 (00:14→21:30)
[2023-05-08 05:39] LABS: BASOPHILS # (AUTO) 0.1 10^3/uL (0.0-0.1); BASOPHILS % (AUTO) 0.9 %; EOSINOPHILS # (AUTO) 0.1 10^3/uL (0.0-0.7); EOSINOPHILS % (AUTO) 0.8 %; HGB - HEMOGLOBIN 15.1 g/dL (14.0-18.0); LYMPHOCYTES # (AUTO) 1.1 10^3/uL (1.5-3.5); LYMPHOCYTES % (AUTO) 13.1 %; MEAN CORPUSCULAR HGB CONC 35.1 g/dL (32.0-36.0); MEAN CORPUSCULAR VOLUME 94.1 fL (80.0-94.0); MONOCYTES # (AUTO) 0.4 10^3/uL (0.0-1.0); MONOCYTES % (AUTO) 4.2 %; NEUTROPHILS % (AUTO) 80.7 %; PLT - PLATELET COUNT 42 10^3/uL (130-450); RED BLOOD COUNT 4.57 10^6/uL (4.70-6.10); WHITE BLOOD COUNT 8.7 x10^3/uL (4.8-10.8)
[2023-05-08 05:51] LABS: CALCIUM 8.9 mg/dL (8.5-10.3); CREATININE 1.1 mg/dL (0.6-1.3); POTASSIUM 3.8 mmol/L (3.5-4.5)
[2023-05-08] MEDS: CLOTRIMAZOLE 1% CREAM 15 GM TUBE TOP SCH ×2 (08:35→21:30)
[2023-05-08] MEDS: cefTRIAXone 2 GM in SODIUM CHLORIDE 0.9% MINIBAG 100 ML IV SCH (08:35)
[2023-05-08] MEDS: FLUCONAZOLE 100 MG TABLET PO SCH (08:35)
[2023-05-08] MEDS: polyethylene glycoL 3350 17 GM PACKET PO SCH (08:35)
[2023-05-08] MEDS: PHENAZOPYRIDINE 100 MG TABLET PO SCH ×2 (13:40→21:30)
--- NOTE | 2023-05-08 14:53 | PROVIDER PROGRESS NOTE ---
Subjective - Prog Note Date Prog Note Date: 05/08/23 Prog Note Time: 15:48 - Subjective Pt reports feeling: No change Subjective: The blood culture identification came in this morning at approximately 8:30 AM. Its Aerococcus urinae. In reviewing the literature, Aerococcus urinae and Streptococcus viridans can be mistaken for each other quite often. There is a complexity of identification and the micro lab that needs take into account. I have spoken to the [employer] tech and she fells the ID is correct. Strep in the urine and Aerococcus in the blood. Every day have been going over review of systems on this raul man. He denies everything. But his mom now tells me today that has been complaining of burning with urination for 2 days. She asked if he could please get something to help him with his bladder spasm and burning with urination Current Medications - Current Medications Current Medications: Active Medications Acetaminophen (Acetaminophen 325 Mg Tablet) 650 mg PO Q4HR PRN PRN Reason: Pain 1 to 4, or Fever Clotrimazole (Clotrimazole 1% Cream 15 Gm Tube) 1 applic TOP BID [facility] Last Admin: 05/08/23 21:30 Dose: 1 applic Fluconazole (Fluconazole 100 Mg Tablet) 100 mg PO DAILY [facility] Last Admin: 05/08/23 08:35 Dose: 100 mg Ceftriaxone Sodium 2 gm/ (Sodium Chloride) 100 mls @ 200 mls/hr IV DAILY [facility] Last Infusion: 05/08/23 09:10 Dose: Infused Oxycodone HCl (Oxycodone 5 Mg Tablet) 5 mg PO Q4HR PRN PRN Reason: Pain 5 to 7 Phenazopyridine HCl (Phenazopyridine 100 Mg Tablet) 100 mg PO TID [facility] Last Admin: 05/08/23 21:30 Dose: 100 mg Polyethylene Glycol (Polyethylene Glycol 3350 17 Gm Packet) 17 gm PO DAILY [facility] Last Admin: 05/08/23 08:35 Dose: Not Given Prochlorperazine Edisylate (Prochlorperazine 10 Mg/2 Ml Vial) 10 mg IVP Q6HR PRN PRN Reason: Nausea / Vomiting Prochlorperazine Maleate (Prochlorperazine 5 Mg Tablet) 5 mg PO Q6HR PRN PRN Reason: Nausea / Vomiting Sodium Chloride (Sodium Chloride Flush 0.9% 10 Ml Syringe) 10 ml IVP PRN PRN PRN Reason: NEEDED PER PROVIDER ORDERS Sodium Chloride (Sodium Chloride Flush 0.9% 10 Ml Syringe) 10 ml IVP 0100,0900,1700 [facility] Last Admin: 05/08/23 21:30 Dose: 10 ml Clotrimazole/Betamethasone Crm [Lotrisone Cream] 1 applic TOP BID 05/06/23 Multivitamin [Theragran] 1 each PO DAILY 05/06/23 Objective - Vital Signs/Intake & Output Reviewed Vital Signs: Yes Vital Signs: Vital Signs x48h Temp Pulse Resp BP Pulse Ox 05/08/23 07:50 36.2 C L 75 16 103/74 96 Intake & Output: Intake & Output 05/05/23 05/06/23 05/07/23 05/08/23 23:59 23:59 23:59 23:59 Intake Total 2971.667 3118.333 1510 658 Output Total 150 Balance 2971.667 2968.333 1510 658 - Objective General Appearance: positive: No acute distress, Alert, Other (Physical manifestations of trisomy 21) Eyes Bilateral: positive: PERRL, EOMI ENT: positive: No signs of dehydration Neck: positive: No JVD. negative: Stiff neck Respiratory: positive: No respiratory distress. negative: Wheezes, Rales, Rhonchi Cardiovascular: positive: Regular rate & rhythm Abdomen: positive: Non-tender, No organomegaly, Nml bowel sounds, No distention, Other (Balanitis. Currently getting fungal cream per my order) Skin: positive: Warm, Dry Extremities: positive: Full ROM Neurologic/Psychiatric: positive: Oriented x3, CN's nml (2-12), Motor nml - Lab Results Fish Bones: 05/08/23 05:28 05/08/23 05:28 Other Labs: Lab Results x24hrs 05/08/23 05/08/23 05/05/23 Range/Units 05:28 05:28 14:10 WBC 8.7 (4.8-10.8) x10^3/uL RBC 4.57 L (4.70-6.10) 10^6/uL Hgb 15.1 (14.0-18.0) g/dL Hct 43.0 (42.0-52.0) % MCV 94.1 H (80.0-94.0) fL MCH 33.0 H (27.0-31.0) pg MCHC 35.1 (32.0-36.0) g/dL RDW 14.0 (12.0-15.0) % Plt Count 42 L (130-450) 10^3/uL MPV 11.0 (7.4-11.4) fL Neut # (Auto) 7.0 H (1.5-6.6) 10^3/uL Lymph # (Auto) 1.1 L (1.5-3.5) 10^3/uL [place] # (Auto) 0.4 (0.0-1.0) 10^3/uL Eos # (Auto) 0.1 (0.0-0.7) 10^3/uL Baso # (Auto) 0.1 (0.0-0.1) 10^3/uL Absolute Nucleated RBC 0.00 x10^3/uL Nucleated RBC % 0.0 /100WBC Sodium 140 (135-145) mmol/L Potassium 3.8 (3.5-4.5) mmol/L Chloride 107 (101-111) mmol/L Carbon Dioxide 28 (21-32) mmol/L Anion Gap 5.0 L (6-13) BUN 17 (6-20) mg/dL Creatinine 1.1 (0.6-1.3) mg/dL Estimated GFR (MDRD) 70 L (>89) Glucose 100 (74-104) mg/dL Calcium 8.9 (8.5-10.3) mg/dL Miscellaneous Test COMMENT (.) ABX Reporting Has patient been on IV antibiotics over the past 48 hours?: Yes Assessment/Plan - Problem List (1) Group B streptococcal UTI Impression: with aerococcus urinae in blood cultures This gentleman presented as hypotension, and a single episode of nausea and vomiting. This was associated with a temporary episode of confusion and lethargy. He had a few episodes of diarrhea. All of those symptoms have resolved. He had a normal white cell count on admission, but the next day white cell count was 29,000. He had already been started on empiric antibiotic therapy for possible meningitis after an LP with rocephin, vanc. Cultures were negative for CSF, blood and urine until 05/07. Blood cultures became positive for gram-positive cocci in pairs 05/07. PCR for the blood cultures tells me what it is not. But it does not tell me what it is. Urine culture is positive for strep viridans. Strep viridans is usually associated with oral bia. I have to think about infective endocarditis, empyema, neutropenic sepsis, or brain abscess. But it present in his urine. Aerococcus urinae is usually associated with bladder cancer. But it is present in his blood. This is a confusing presentation of bacteria that can be misidentified. Blood cultures were repeated May 07. Those are pending.Since MRSA nasal swab was negative, not a perfect indicator, b ut acceptable enough for me to stop vancomycin on May 07. Plan: If it is a simple UTI he would get 7 days of treatment. If he was neutropenic, he would get 14 days. I will need to check an echocardiogram for valve disease. If the echo is negative and his repeat blood cultures are negative, I would imagine I can get away with 7-14 days of therapy depending on his WBC and C reactive protein. But if the echo has any valve abnormality and his repeat blood cultures are positive, he will need a transesophageal echo and up to 4 weeks of therapy with pen G. Day #4 Ceftriaxone (2) Neck fullness Conclusion/Plan: My exam confirms mom's worry. It is Unilateral. Left side. No discrete adenopathy in the supraclavicular fossa, preauricular/posterior auricular area. He is chewing and swallowing normally and he repeatedly says that nothing hurts on that side. But mom feels that this is new. She is never noted that he had that type of fullness before. However, CT is negative. I can only attribute this to just anatomical variation (3) Chronic kidney disease Conclusion/Plan: Baseline creatinine is 1.3. GFR usually in the high 40s. Today's creatinine is 1.6 with a GFR 45. As such he appears to have chronic kidney disease with mild exacerbation. Antecedent history gives me no insight as to why he may be dehydrated. His p.o. intake has been normal, and he has been essentially "normal" to mom as far she knows. Laboratory Tests 05/05/23 05/06/23 12:31 04:39 Creatinine 1.6 H 1.2 Laboratory Tests 05/07/23 05:06 BUN 16 Creatinine 1.1 Laboratory Tests 05/08/23 05:28 Creatinine 1.1 After IV fluids and antibiotics, it is normal. Plan: I stopped IV fluids May 06. We will continue to encourage eating and drinking. Qualifiers: Chronic kidney disease stage: stage 3 (moderate) (4) Ring worm rash in L axilla Clotrimazole cream twice a dayWas ordered May 06. The geographical distribution is large enough that a little tube is not helping his. I will start him on Diflucan. He has not really had any nausea. As such no use for the Zofran that I ordered for as needed. I switched the Zofran as needed to Ilya zine as needed due to interaction with Diflucan.
[2023-05-09] MEDS: SODIUM CHLORIDE FLUSH 0.9% 10 ML SYRINGE IVP SCH ×4 (00:59→22:43)
[2023-05-09 05:41] LABS: BASOPHILS # (AUTO) 0.1 10^3/uL (0.0-0.1); BASOPHILS % (AUTO) 1.6 %; EOSINOPHILS # (AUTO) 0.1 10^3/uL (0.0-0.7); EOSINOPHILS % (AUTO) 1.4 %; HCT - HEMATOCRIT 46.7 % (42.0-52.0); HGB - HEMOGLOBIN 16.2 g/dL (14.0-18.0); LYMPHOCYTES # (AUTO) 1.6 10^3/uL (1.5-3.5); LYMPHOCYTES % (AUTO) 29.3 %; MEAN CORPUSCULAR HEMOGLOBIN 32.3 pg (27.0-31.0); MEAN CORPUSCULAR HGB CONC 34.7 g/dL (32.0-36.0); MEAN CORPUSCULAR VOLUME 93.2 fL (80.0-94.0); MEAN PLATELET VOLUME 11.2 fL (7.4-11.4); MONOCYTES # (AUTO) 0.3 10^3/uL (0.0-1.0); MONOCYTES % (AUTO) 6.2 %; NEUTROPHILS # (AUTO) 3.4 10^3/uL (1.5-6.6); NEUTROPHILS % (AUTO) 61.1 %; PLT - PLATELET COUNT 64 10^3/uL (130-450); RED BLOOD COUNT 5.01 10^6/uL (4.70-6.10); RED CELL DISTRIBUTION WIDTH 13.6 % (12.0-15.0); WHITE BLOOD COUNT 5.5 x10^3/uL (4.8-10.8)
[2023-05-09 05:55] LABS: CALCIUM 9.2 mg/dL (8.5-10.3); CREATININE 1.1 mg/dL (0.6-1.3); CRP - C-REACTIVE PROTEIN 1.5 mg/dL (<0.5); POTASSIUM 3.8 mmol/L (3.5-4.5)
[2023-05-09] MEDS: PHENAZOPYRIDINE 100 MG TABLET PO SCH ×3 (06:54→22:42)
[2023-05-09] MEDS: polyethylene glycoL 3350 17 GM PACKET PO SCH (08:08)
[2023-05-09] MEDS: cefTRIAXone 2 GM in SODIUM CHLORIDE 0.9% MINIBAG 100 ML IV SCH (09:01)
[2023-05-09] MEDS: FLUCONAZOLE 100 MG TABLET PO SCH (09:01)
[2023-05-09] MEDS: CLOTRIMAZOLE 1% CREAM 15 GM TUBE TOP SCH ×2 (09:14→19:58)
[2023-05-09] MEDS: PROCHLORPERAZINE 10 MG/2 ML VIAL IVP PRN (09:18)
--- NOTE | 2023-05-09 14:54 | PROVIDER PROGRESS NOTE ---
Subjective - Prog Note Date Prog Note Date: 05/09/23 Prog Note Time: 15:00 - Subjective Pt reports feeling: No change Subjective: Mr. Dale is on his 4th day of admission with us and has new complaints of nausea by way of retching, per pt's mother and nursing staff. He denies any complaints when directly asked but has difficulty communicating, which pt's mother reports as unusual for him. Pt's mother notes he is relatively aware to his situation/surroundings and time, however he now seems more confused and believes he is currently in a hotel. Objective - Vital Signs/Intake & Output Reviewed Vital Signs: Yes Vital Signs: Vital Signs x48h Temp Pulse Resp BP Pulse Ox 05/09/23 08:11 36.2 C L 68 16 102/74 98 Intake & Output: Intake & Output 05/06/23 05/07/23 05/08/23 05/09/23 23:59 23:59 23:59 23:59 Intake Total 3118.333 1510 818 520 Output Total 150 Balance 2968.333 1510 818 520 - Objective General Appearance: positive: No acute distress Eyes Bilateral: positive: Conjunctivae nml, No scleral icterus ENT: positive: ENT inspection nml, No signs of dehydration Neck: positive: Nml inspection, Thyroid nml, No JVD, Trachea midline Respiratory: positive: Chest non-tender, No respiratory distress, Breath sounds nml Cardiovascular: positive: Regular rate & rhythm, No murmur, No gallop Abdomen: positive: Non-tender, Nml bowel sounds, No distention Skin: positive: Color nml, Warm, Dry, Skin rash (Tinea corporis) Extremities: positive: Non-tender, Full ROM, Nml appearance, No pedal edema Neurologic/Psychiatric: positive: Mood/affect nml, Disoriented to place, Slurred/abnml speech (Pt having difficulty forming words, responses limited to 1-2 words) - Lab Results Fish Bones: 05/09/23 05:29 05/09/23 05:29 Other Labs: Lab Results x24hrs 05/09/23 05/09/23 Range/Units 05:29 05:29 WBC 5.5 (4.8-10.8) x10^3/uL RBC 5.01 (4.70-6.10) 10^6/uL Hgb 16.2 (14.0-18.0) g/dL Hct 46.7 (42.0-52.0) % MCV 93.2 (80.0-94.0) fL MCH 32.3 H (27.0-31.0) pg MCHC 34.7 (32.0-36.0) g/dL RDW 13.6 (12.0-15.0) % Plt Count 64 L (130-450) 10^3/uL MPV 11.2 (7.4-11.4) fL Neut # (Auto) 3.4 (1.5-6.6) 10^3/uL Lymph # (Auto) 1.6 (1.5-3.5) 10^3/uL [place] # (Auto) 0.3 (0.0-1.0) 10^3/uL Eos # (Auto) 0.1 (0.0-0.7) 10^3/uL Baso # (Auto) 0.1 (0.0-0.1) 10^3/uL Absolute Nucleated RBC 0.00 x10^3/uL Nucleated RBC % 0.0 /100WBC Sodium 139 (135-145) mmol/L Potassium 3.8 (3.5-4.5) mmol/L Chloride 103 (101-111) mmol/L Carbon Dioxide 30 (21-32) mmol/L Anion Gap 6.0 (6-13) BUN 14 (6-20) mg/dL Creatinine 1.1 (0.6-1.3) mg/dL Estimated GFR (MDRD) 70 L (>89) Glucose 101 (74-104) mg/dL Calcium 9.2 (8.5-10.3) mg/dL C-Reactive Protein 1.5 H (<0.5) mg/dL - Diagnostic Imaging Diagnostic Imaging Results: positive: Discussed with radiologist (Discussed L side neck mass w/ radiologist, no lesion or tumor present; mass likely due to pt position in CT scanner and adipose tissue collection.) ABX Reporting Has patient been on IV antibiotics over the past 48 hours?: Yes Sepsis Event Note (H) - Evaluation Current Stage of Sepsis: Resolved Possible source of Sepsis: positive: Endocarditis, Genitourinary - Sepsis Criteria Sepsis Criteria: Suspected or Documented, Recorded Heart Rate greater than 90 bpm, WBC count greater than 10% bands, SBP less than 90 mmHg, Metabolic: lactate > 2 mmol/L Assessment/Plan - Problem List (1) Group B streptococcal UTI Impression: With aerococcus urinae in blood cultures: This gentleman presented 05/06 to the ED with hypotension and a single episode of nausea and vomiting. As of 05/08, the pt's confusion, lethargy, and diarrhea had all resolved. Per pt's mother, he is still not at baseline cognition and is generally more alert. He was initially started on ceftriaxone and vancomycin, however after MRSA swab resulted negative, vancomycin was discontinued. Pt has continued 200 mg ceftriaxone IV bolus daily. CT abdomen/pelvis performed 05/09 shows diffuse severe bladder wall thickening, which correlates w/ pt's presentation of cystitis, and is already receiving appropriate treatment w/ ceftriaxone. Plan: Repeat blood cultures (from 05/07) are reassuring that antibiotic regimen is effective and overall infection is resolving. Will continue antibiotic regimen and monitor pt's progress. (2) Bacteremia Blood cultures repeated May 07 have resulted, showing no new growth of bacterial agents. His level of confusion continues to remain difficult to assess given his history of Down's syndrome and speech difficulty. However his vitals, WBC count, and blood culture results all support his suspected urosepsis presentation is trending the right direction. Plan: Per guidelines, will continue w/ a day 10 course as to avoid rebound infection. Will consult ID tomorrow to explore possibility of switching pt to PO antibiotic if good bioavailability can be achieved. Echocardiogram performed today shows no concern for endocarditis or gross valvular defect requiring further management. (3) Nausea staffing director and pt's mother report pt has been nauseated by proxy of intermittent retching, with a "small" but unquantified amount of vomiting. Pt given compazine at 0900 today. Pt has been noted to keep oral fluids and some amount of food down, however pt appears more somnolent and fatigued today compared to previous. I have considered opioid use as a causative agent to his somnolence, however his positive tox screen was collected post med administration in the ED and he has not received any pain meds for 2x days. Plan: As he has not received IV fluids since 05/06 and is failing oral rehydration attempts, will restart pt's IV fluids (D5 w/NS and K+) to provide some level of caloric value with the secondary goal of rehydration. His diet will also be de- escalated to reduce GI upset and reassess his symptoms tomorrow. I also believe a CT of his abdomen and pelvis would be warranted as nausea medicine has not been helpful, he is unable to corroborate PE findings or localize pain, and he does not have a clear source for the nausea. (4) Colitis As noted with his nausea symptoms, CT was ordered to r/o GI causative agent of his inability to tolerate PO fluids/food. CT abdomen/pelvis performed 05/09 shows mild diffuse bowel wall thickening in the transverse, descending, sigmoid colon which is suggestive of colitis and would explain his recurrent nausea/vomiting. No evidence of SBO or diverti culitis. Plan: As with his cystitis/Strep B UTI treatment, metronidazole will be added on for a minimum of 5 days to cover for gram negative bacteria likely causing his colit is. Will reassess pt's status tomorrow and adjust treatment as needed. (5) Chronic kidney disease Pt's GFR has almost doubled since initial admission, now GFR is 70. Baseline creatinine is 1.3. GFR usually in the high 40s. Today's creatinine is 1.6 with a GFR 45. As such he appears to have chronic kidney disease with mild exacerbation. Antecedent history gives me no insight as to why he may be dehydrated. His p.o. intake has been normal prior to admission; he has been essentially "normal" to mom as far she knows. Plan: Continue to avoid nephrotoxins; IV fluids will be resumed as previously mentioned to rehydrate the patient and promote healthy renal function. Qualifiers: Chronic kidney disease stage: stage 3 (moderate) (6) Ring worm rash in L axilla Clotrimazole cream TID ordered May 06 which is still being applied. He has been given Diflucan as well d/t topical being insufficient coverage needed for said rash. Compazine PRN has been ordered (replacing Zofran) due to interaction with Diflucan. (7) Neck fullness Conclusion/Plan: Pt's mother was concerned regarding a unilateral, left side edema she noted as new. No discrete adenopathy in the supraclavicular fossa, preauricular/posterior auricular area. He denies complaints w/ chewing, swallowing, or pain. Head/neck CT is negative and was reviewed with radiologist; this review was further reiterated w/ pt's mother and reassured there is no lesion or tumor present at time of admission. (8) Down's Syndrome Congenital, per pt's history. No direct intervention, however his presentation complicates treatment.
[2023-05-09] MEDS ORDERED: iohexoL-300 100 ML VIAL IVP ONE (18:11)
--- NOTE | 2023-05-09 18:26 | CT Report ---
PROCEDURE: ABDOMEN/PELVIS W INDICATIONS: Persistent N/V, UTI CONTRAST: Omni 300 100ml TECHNIQUE: After the administration of intravenous contrast, 5 mm thick sections acquired from the diaphragms to the symphysis. 5 mm thick coronal and sagittal reformats were acquired. For radiation dose reducti on, the following was used: automated exposure control, adjustment of mA and/or kV according to bertha ent size. COMPARISON: None. FINDINGS: Image quality: Excellent. Lung bases and heart: Unremarkable. Liver: No solid mass. Gallbladder and biliary tree: The gallbladder is mildly contracted. No pericholecystic inflammatory c hanges. Spleen: No splenomegaly. Pancreas: No pancreatic ductal dilation. Adrenals: No adrenal nodule. Kidneys and ureters: No hydronephrosis. No renal cystic lesion which requires follow up. No solid mas s. Bilateral parapelvic renal cysts. Bowel and peritoneum: Multiple diverticula are seen in the colon. No signs of acute diverticulitis. T here is mild diffuse bowel wall thickening in the distal transverse, descending, and sigmoid colon th at is suspicious for a nonspecific colitis. No signs of small bowel obstruction. Stomach is unremarka ble. Lymph nodes: No central or retroperitoneal adenopathy. Vessels: No infrarenal aortic aneurysm. PELVIS Reproductive organs: Prostate is normal in size. Bladder: There is diffuse severe bladder wall thickening. Pelvic lymph nodes: No pelvic adenopathy by size criteria. Bones: No aggressive osseous abnormality. Grade 1 anterolisthesis at L4-5 secondary to bilateral L4 p ars interarticularis defects. Other: Small fat-containing left inguinal hernia. IMPRESSION: 1.Diffuse severe bilateral thickening. Recommend correlation for cystitis. No definite signs of arthr itis. 2.Long segment bowel thickening the colon and is suspicious for a nonspecific colitis. Colonic divert icula are seen without signs of focal diverticulitis. Reviewed by: Jerzy Kwong MD on 05/09/2023 6:24 PM PDT Approved by: Jerzy Kwong MD on 05/09/2023 6:24 PM PDT Station ID: [id number]
[2023-05-09] MEDS: D5NS W/20 MEQ KCL 1,000 ML IV SCH (18:42)
[2023-05-09] MEDS: metroNIDAZOLE 500 MG/100 ML 500 MG/100 ML BAG IV SCH (19:58)
[2023-05-10] MEDS: metroNIDAZOLE 500 MG/100 ML 500 MG/100 ML BAG IV SCH ×3 (03:11→19:50)
[2023-05-10] MEDS: PHENAZOPYRIDINE 100 MG TABLET PO SCH ×3 (06:12→19:52)
[2023-05-10 06:31] LABS: BASOPHILS # (AUTO) 0.1 10^3/uL (0.0-0.1); BASOPHILS % (AUTO) 1.7 %; EOSINOPHILS # (AUTO) 0.1 10^3/uL (0.0-0.7); EOSINOPHILS % (AUTO) 2.1 %; HGB - HEMOGLOBIN 15.2 g/dL (14.0-18.0); LYMPHOCYTES # (AUTO) 1.5 10^3/uL (1.5-3.5); LYMPHOCYTES % (AUTO) 31.7 %; MEAN CORPUSCULAR HEMOGLOBIN 33.9 pg (27.0-31.0); MEAN CORPUSCULAR HGB CONC 36.2 g/dL (32.0-36.0); MEAN CORPUSCULAR VOLUME 93.8 fL (80.0-94.0); MEAN PLATELET VOLUME 10.4 fL (7.4-11.4); MONOCYTES # (AUTO) 0.4 10^3/uL (0.0-1.0); MONOCYTES % (AUTO) 7.2 %; NEUTROPHILS # (AUTO) 2.7 10^3/uL (1.5-6.6); NEUTROPHILS % (AUTO) 56.7 %; PLT - PLATELET COUNT 78 10^3/uL (130-450); RED BLOOD COUNT 4.48 10^6/uL (4.70-6.10); RED CELL DISTRIBUTION WIDTH 13.9 % (12.0-15.0); WHITE BLOOD COUNT 4.8 x10^3/uL (4.8-10.8)
[2023-05-10 06:47] LABS: CALCIUM 8.7 mg/dL (8.5-10.3); CREATININE 0.9 mg/dL (0.6-1.3); CRP - C-REACTIVE PROTEIN 0.8 mg/dL (<0.5); POTASSIUM 3.8 mmol/L (3.5-4.5)
[2023-05-10] MEDS: cefTRIAXone 2 GM in SODIUM CHLORIDE 0.9% MINIBAG 100 ML IV SCH (08:21)
[2023-05-10] MEDS: FLUCONAZOLE 100 MG TABLET PO SCH (08:21)
[2023-05-10] MEDS: CLOTRIMAZOLE 1% CREAM 15 GM TUBE TOP SCH ×2 (08:21→19:50)
[2023-05-10] MEDS: SODIUM CHLORIDE FLUSH 0.9% 10 ML SYRINGE IVP SCH ×2 (08:21→18:39)
[2023-05-10] MEDS: polyethylene glycoL 3350 17 GM PACKET PO SCH (08:22)
[2023-05-10] MEDS: D5NS W/20 MEQ KCL 1,000 ML IV SCH (11:19)
[2023-05-10] MEDS: PROCHLORPERAZINE 10 MG/2 ML VIAL IVP PRN (11:30)
--- NOTE | 2023-05-10 17:26 | PROVIDER PROGRESS NOTE ---
Subjective - Prog Note Date Prog Note Date: 05/10/23 Prog Note Time: 17:24 - Subjective Pt reports feeling: Improved Subjective: Mr. Dale reports feeling better today, which is supported by his mother, and she believes she has "gotten her son back." The patient is able to answer questions and interact with his family which is an improvement over yesterday. He appears pleasant and when going over ROS with him, he declines symptoms. Objective - Vital Signs/Intake & Output Reviewed Vital Signs: Yes Vital Signs: Vital Signs x48h Temp Pulse Resp BP Pulse Ox 05/10/23 16:00 36.5 C 85 20 111/71 95 Intake & Output: Intake & Output 05/07/23 05/08/23 05/09/23 05/10/23 23:59 23:59 23:59 23:59 Intake Total 8770 507 0422 2137 Output Total 0 Balance 4778 402 9866 2137 - Objective General Appearance: positive: No acute distress, Alert Eyes Bilateral: positive: Normal inspection, No scleral icterus ENT: positive: No signs of dehydration Neck: positive: Thyroid nml, No JVD, Trachea midline Respiratory: positive: Chest non-tender, No respiratory distress Abdomen: positive: Non-tender, No distention Skin: positive: Color nml, Warm, Dry, Skin rash (Tinea corporis on L flank/underarm, appears to be resolving.) Extremities: positive: Non-tender, Nml appearance Neurologic/Psychiatric: positive: Motor nml, Sensation nml, Mood/affect nml, Di soriented to time - Lab Results Fish Bones: 05/10/23 05:38 05/10/23 05:38 Other Labs: Lab Results x24hrs 05/10/23 05/10/23 Range/Units 05:38 05:38 WBC 4.8 (4.8-10.8) x10^3/uL RBC 4.48 L (4.70-6.10) 10^6/uL Hgb 15.2 (14.0-18.0) g/dL Hct 42.0 (42.0-52.0) % MCV 93.8 (80.0-94.0) fL MCH 33.9 H (27.0-31.0) pg MCHC 36.2 H (32.0-36.0) g/dL RDW 13.9 (12.0-15.0) % Plt Count 78 L (130-450) 10^3/uL MPV 10.4 (7.4-11.4) fL Neut # (Auto) 2.7 (1.5-6.6) 10^3/uL Lymph # (Auto) 1.5 (1.5-3.5) 10^3/uL [place] # (Auto) 0.4 (0.0-1.0) 10^3/uL Eos # (Auto) 0.1 (0.0-0.7) 10^3/uL Baso # (Auto) 0.1 (0.0-0.1) 10^3/uL Absolute Nucleated RBC 0.00 x10^3/uL Nucleated RBC % 0.0 /100WBC Sodium 140 (135-145) mmol/L Potassium 3.8 (3.5-4.5) mmol/L Chloride 108 (101-111) mmol/L Carbon Dioxide 28 (21-32) mmol/L Anion Gap 4.0 L (6-13) BUN 13 (6-20) mg/dL Creatinine 0.9 (0.6-1.3) mg/dL Estimated GFR (MDRD) 88 L (>89) Glucose 104 (74-104) mg/dL Calcium 8.7 (8.5-10.3) mg/dL C-Reactive Protein 0.8 H (<0.5) mg/dL - Diagnostic Imaging Diagnostic Imaging Results: positive: Final report reviewed (CT abdomen/pelvis both reviewed; CT head/neck (also reviewed w/ radiologist)) - Other Results/Comments Other Results/Comments: Day 5 of IV Ceftriaxone ABX Reporting Has patient been on IV antibiotics over the past 48 hours?: Yes Sepsis Event Note (H) - Evaluation Current Stage of Sepsis: Resolved Possible source of Sepsis: positive: GI tract/intra-abdominal (Possibly related to colitis), Genitourinary Confirmed Source and Organism (if known) of Sepsis: Aerococcus urinae in blood - Sepsis Criteria Sepsis Criteria: Suspected or Documented, Recorded Heart Rate greater than 90 bpm, WBC count greater than 10% bands, SBP less than 90 mmHg, Metabolic: lactate > 2 mmol/L Assessment/Plan - Problem List (1) Group B streptococcal UTI Impression: Mr. Dale presented 05/06 to the ED with hypotension w/ single episode of nausea and vomiting. UTI was uncovered in ED workup. From that, blood cultures ID's Aerococcus urinae, which has responded well to IV ceftriaxone. Daily bolus of 2 gm ceftriaxone IV has been continued. Pt remains afebrile, no tachycaria, and normotensive. Diffuse severe bladder wall thickening was discovered via CT, correlating w/ pt's cystitis, and ceftriaxone continues to treat this infection well. He has noted to staff and his mother that pyridium has been helpful with his urinary symptoms, will continue that therapy. Plan: Continue to administer ceftriaxone and pyridium. Due to pt census, ID consult was delayed but to avoid lengthy inpatient/SNF placement for continued IV abx, PO options will be discussed to send home w/ patient. (2) Bacteremia w/ aerococcus urinae in blood cultures: Impression: His vitals, WBC count, and blood culture results all support his suspected urosepsis presentation is resolving. He is alert, attempts conversation, and appears to be near his baseline mental status per family. His mobility has also improved and is now able to do ADLs with minimal assistance. Plan: As previously noted, will continue w/ a day 10 course of antibiotics. Still planning to consult ID tomorrow and explore switching to PO antibiotic if good bioavailability can be achieved. Echocardiogram confirms no endocarditis or gross valvular defect requiring treatment alteration. (3) Nausea Impression: IMPROVED Pt denies nausea when asked directly; mother confirms that as of today he has been able to eat and drink w/o retching as he was previously. PRN compazine is still ordered though has not been administered throughout all of day shift. Since last night, pt was given 1L of IV fluids (D5 w/NS and K+) which pt tolerated well. Pt's diet was de-escalated to more bland foods and pt has symptomatically tolerated that well, though unhappy with the dietary variety. Plan: Continue to monitor symptoms, encourage oral fluid intake and reassess. He may have some rebound nausea and generalized inflammation that can be addressed with compazine. (4) Colitis Impression: IMPROVED Metronidazole was added to pt's antibiotic regimen as of last night and appears to have improved pt's nausea/vomiting throughout the day. Pt's mother has noted his mental status, speech, and mobility have all drastically improved from his presentation yesterday. Pt denies nausea, vomiting, or abdominal pains; pt's mother denies any new concerns or negative changes in his symptoms. Plan: Will continue w/ metronidazole and monitor for changes in GI symptoms. (5) Chronic kidney disease Impression: IMPROVED Pt's GFR appears to have recovered; he was thought to have a more significant level of kidney disease upon admission; his GFR is 79 today. There is no history of kidney disease per pt's family and pt has no other known urolithiasis or renal complications. Due to the unclear history leading to his cystitis combined w/ colitis, it is likely his kidneys had residual inflammation from the sepsis, which is more likely an acute kidney injury. Plan: Encourage oral fluids and promote healthy renal clearance. Continue to avoid nephrotoxins. (6) Ring worm rash in L axilla Impression: Clotrimazole cream TID still being applied. Diflucan has shown greater improvement in the resolution of the rash d/t the anatomical location of the rash and pt's inability to keep area dry through self care. Plan: Rash is resolving; will continue course for several more days to completely eliminate the ring worm. (7) Neck fullness Impression: Pt's mother was concerned regarding a unilateral, left side edema she noted as new. No discrete adenopathy in the supraclavicular fossa, preauricular/posterior auricular area. He denies complaints w/ chewing, swallowing, or pain. Head/neck CT is negative and was reviewed with radiologist; this review was further reiterated w/ pt's mother and reassured there is no lesion or tumor present at time of admission. (8) Down's Syndrome Impression: Congenital, per pt's history. No direct intervention, however his presentation complicates treatment.
[2023-05-11] MEDS: SODIUM CHLORIDE FLUSH 0.9% 10 ML SYRINGE IVP SCH ×3 (01:13→16:28)
[2023-05-11] MEDS: D5NS W/20 MEQ KCL 1,000 ML IV SCH (03:37)
[2023-05-11] MEDS: metroNIDAZOLE 500 MG/100 ML 500 MG/100 ML BAG IV SCH ×3 (03:37→19:17)
[2023-05-11] MEDS: PHENAZOPYRIDINE 100 MG TABLET PO SCH ×3 (05:22→22:09)
[2023-05-11] MEDS: FLUCONAZOLE 100 MG TABLET PO SCH (09:01)
[2023-05-11] MEDS: cefTRIAXone 2 GM in SODIUM CHLORIDE 0.9% MINIBAG 100 ML IV SCH (09:01)
[2023-05-11] MEDS: polyethylene glycoL 3350 17 GM PACKET PO SCH (09:02)
[2023-05-11] MEDS: CLOTRIMAZOLE 1% CREAM 15 GM TUBE TOP SCH ×2 (09:02→21:14)
[2023-05-11 10:03] LABS: BASOPHILS # (AUTO) 0.1 10^3/uL (0.0-0.1); BASOPHILS % (AUTO) 1.8 %; EOSINOPHILS # (AUTO) 0.1 10^3/uL (0.0-0.7); EOSINOPHILS % (AUTO) 1.6 %; HCT - HEMATOCRIT 44.3 % (42.0-52.0); HGB - HEMOGLOBIN 15.3 g/dL (14.0-18.0); LYMPHOCYTES # (AUTO) 1.8 10^3/uL (1.5-3.5); LYMPHOCYTES % (AUTO) 33.7 %; MEAN CORPUSCULAR HEMOGLOBIN 32.6 pg (27.0-31.0); MEAN CORPUSCULAR HGB CONC 34.5 g/dL (32.0-36.0); MEAN CORPUSCULAR VOLUME 94.5 fL (80.0-94.0); MEAN PLATELET VOLUME 11.3 fL (7.4-11.4); MONOCYTES # (AUTO) 0.4 10^3/uL (0.0-1.0); MONOCYTES % (AUTO) 7.7 %; NEUTROPHILS % (AUTO) 54.8 %; PLT - PLATELET COUNT 101 10^3/uL (130-450); RED BLOOD COUNT 4.69 10^6/uL (4.70-6.10); WHITE BLOOD COUNT 5.5 x10^3/uL (4.8-10.8)
[2023-05-11 10:15] LABS: CALCIUM 9.1 mg/dL (8.5-10.3); POTASSIUM 3.6 mmol/L (3.5-4.5)
--- NOTE | 2023-05-11 13:44 | PROVIDER PROGRESS NOTE ---
Subjective - Prog Note Date Prog Note Date: 05/11/23 Prog Note Time: 13:40 - Subjective Pt reports feeling: Improved Subjective: Mr. Dlae continues to show improvement from his initial presentation of altered, nauseated, and uncomfortable. Today, I found patient upright in chair, smiling, and had just eaten dinner with his mother. He was happy to see Dr. Downs and myself, giving both of us a fist-bump. He reports "I have lots of friends here" and mother again expressed appreciation for his care. Objective - Vital Signs/Intake & Output Reviewed Vital Signs: Yes Vital Signs: Vital Signs x48h Temp Pulse Resp BP Pulse Ox 05/11/23 08:00 36.7 C 76 16 108/71 94 Intake & Output: Intake & Output 05/08/23 05/09/23 05/10/23 05/11/23 23:59 23:59 23:59 23:59 Intake Total 818 1520 2837 1538 Output Total 0 Balance 818 1520 2837 1538 - Objective General Appearance: positive: No acute distress, Alert Eyes Bilateral: positive: Normal inspection ENT: positive: No signs of dehydration Neck: positive: Nml inspection, Thyroid nml, No JVD, Trachea midline Respiratory: positive: Chest non-tender, No respiratory distress Abdomen: positive: Non-tender, No distention Skin: positive: Color nml, Warm, Dry Extremities: positive: Non-tender, Full ROM, Nml appearance Neurologic/Psychiatric: positive: Oriented x3 (At baseline cognition per pt's mother), Mood/affect nml - Lab Results Fish Bones: 05/12/23 05:57 05/12/23 05:57 Other Labs: Lab Results x24hrs 05/11/23 05/11/23 05/11/23 Range/Units 05:21 05:21 05:21 WBC 5.5 (4.8-10.8) x10^3/uL RBC 4.69 L (4.70-6.10) 10^6/uL Hgb 15.3 (14.0-18.0) g/dL Hct 44.3 (42.0-52.0) % MCV 94.5 H (80.0-94.0) fL MCH 32.6 H (27.0-31.0) pg MCHC 34.5 (32.0-36.0) g/dL RDW 14.0 (12.0-15.0) % Plt Count 101 L (130-450) 10^3/uL MPV 11.3 (7.4-11.4) fL Neut # (Auto) 3.0 (1.5-6.6) 10^3/uL Lymph # (Auto) 1.8 (1.5-3.5) 10^3/uL Lamb # (Auto) 0.4 (0.0-1.0) 10^3/uL Eos # (Auto) 0.1 (0.0-0.7) 10^3/uL Baso # (Auto) 0.1 (0.0-0.1) 10^3/uL Absolute Nucleated RBC 0.00 x10^3/uL Nucleated RBC % 0.0 /100WBC Sodium 141 (135-145) mmol/L Potassium 3.6 (3.5-4.5) mmol/L Chloride 107 (101-111) mmol/L Carbon Dioxide 26 (21-32) mmol/L Anion Gap 8.0 (6-13) BUN 10 (6-20) mg/dL Creatinine 1.0 (0.6-1.3) mg/dL Estimated GFR (MDRD) 78 L (>89) Glucose 96 (74-104) mg/dL Calcium 9.1 (8.5-10.3) mg/dL Magnesium 1.7 (1.7-2.3) mg/dL C-Reactive Protein (<0.5) mg/dL 05/11/23 Range/Units 05:21 WBC (4.8-10.8) x10^3/uL RBC (4.70-6.10) 10^6/uL Hgb (14.0-18.0) g/dL Hct (42.0-52.0) % MCV (80.0-94.0) fL MCH (27.0-31.0) pg MCHC (32.0-36.0) g/dL RDW (12.0-15.0) % Plt Count (130-450) 10^3/uL MPV (7.4-11.4) fL Neut # (Auto) (1.5-6.6) 10^3/uL Lymph # (Auto) (1.5-3.5) 10^3/uL Lamb # (Auto) (0.0-1.0) 10^3/uL Eos # (Auto) (0.0-0.7) 10^3/uL Baso # (Auto) (0.0-0.1) 10^3/uL Absolute Nucleated RBC x10^3/uL Nucleated RBC % /100WBC Sodium (135-145) mmol/L Potassium (3.5-4.5) mmol/L Chloride (101-111) mmol/L Carbon Dioxide (21-32) mmol/L Anion Gap (6-13) BUN (6-20) mg/dL Creatinine (0.6-1.3) mg/dL Estimated GFR (MDRD) (>89) Glucose (74-104) mg/dL Calcium (8.5-10.3) mg/dL Magnesium (1.7-2.3) mg/dL C-Reactive Protein 0.6 (<0.5) mg/dL ABX Reporting Has patient been on IV antibiotics over the past 48 hours?: Yes Sepsis Event Note (H) - Evaluation Current Stage of Sepsis: Resolved Possible source of Sepsis: positive: GI tract/intra-abdominal (Possibly related to colitis), Genitourinary - Sepsis Criteria Sepsis Criteria: Suspected or Documented, Recorded Heart Rate greater than 90 bpm, WBC count greater than 10% bands, SBP less than 90 mmHg, Metabolic: lactate > 2 mmol/L Assessment/Plan - Problem List (1) Group B streptococcal UTI Impression: IMPROVED Mr. Dale presented 05/06 to the ED with hypotension w/ single episode of nausea and vomiting. UTI was uncovered in ED workup. From that, blood cultures ID's Aerococcus urinae, which has responded well to IV ceftriaxone. Daily 2 g ceftriaxone IV has been continued. Again today, pt remains afebrile, no tachycardia, and normotensive. With his residual inflammation from the cystits, pyridium appears to have helped urinary symptoms. It is difficult to assess with his baseline cognition if he is under-reporting symptoms, but will consider discontinuing pyridium since, per pt and mother, urinary symptoms have resolved. Plan: Consulted with Candy Huertas, Infectious Disease specialist w/ [facility], and due to the presence of both Aerococcus urinae (in blood) and Strep viridans (in urine) Dr. Huertas advised remaining on the current course for 14 days. After adding metronidazole, we are on day 3 of the antibiotic regimen, which he will continue to receive for the next 11 days (14 days total) via IV, per ID recommendation. Continue ceftriaxone and pyridium. Discussed disposition options with patient and mother, such as SNF or hospital swing bed, for continued administration of antibiotic course. Tomorrow will meet [facility] services which will be the best fit for the patient. (2) Bacteremia w/ aerococcus urinae in blood cultures: Impression: IMPROVED His vitals, WBC count, and blood culture results all support his infection is resolving. His WBC count is 5.5 today. He remains alert and has referred to isaias alvarez as "friends" today. Per mother, he has returned to baseline mental status. His mobility has also improved, he was standing and moving to the chair in his room, and also able to do ADLs with minimal assistance, which sounds like that is also a return to his baseline. Plan: As previously noted, continue ceftriaxone, metronidazole via IV for [address] Huertas's advice. Tomorrow will meet [facility] services which will be the best fit for SNF/swing bed treatment for the patient. (3) Nausea Impression: IMPROVED Found patient upright in chair, smiling, and had just eaten dinner with his mother. Pt continues to deny nausea when asked directly, mother also denied any recurrence of his nausea/vomiting. Plan: Continue to monitor symptoms and encourage oral fluid intake. Compazine remains PRN, however none needed today, last dose was 05/10. (4) Colitis Impression: IMPROVED Metronidazole appears to have resolved pt's nausea/vomiting. Pt's mother continues to endorse improvement in his mental status, speech, and mobility, and the patient looks alert and comfortable. Pt denies nausea, vomiting, or abdominal pains; pt's mother denies any new concerns or negative changes in his symptoms. Plan: Will continue w/ metronidazole and monitor for changes in GI symptoms. Will continue ceftriaxone, metronidazole via IV for [address] Huertas's advice. Tomorrow will meet [facility] services which will be the best fit for SNF/s wing bed treatment for the patient. (5) Chronic kidney disease Impression: RESOLVED Pt's GFR appears to have recovered; he was thought to have a more significant level of kidney disease upon admission; his GFR is 78 today. There is no history of kidney disease per pt's family and pt has no other known urolithiasis or renal complications. Due to the unclear history leading to his cystitis combined w/ colitis, it is likely his kidneys had residual inflammation from the sepsis, which is more likely an acute kidney injury. Plan: Encourage oral fluids and promote healthy renal clearance. Continue to avoid nephrotoxins. (6) Ring worm rash in L axilla Impression: IMPROVED Clotrimazole cream TID still being applied. Diflucan has shown greater improvement in the resolution of the rash d/t location of the rash and pt's inability to keep area dry through self care. Plan: Rash is resolving; will continue course for another day, possibly two, to completely eliminate the ring worm. (7) Neck fullness Impression: Pt's mother was concerned regarding a unilateral, left side edema she noted as new. No discrete adenopathy in the supraclavicular fossa, preauricular/posterior auricular area. He denies complaints w/ chewing, swallowing, or pain. Head/neck CT is negative, reviewed with radiologist; this review was further reiterated w/ pt's mother and reassured there is no lesion or tumor present at time of admission. (8) Down's Syndrome Impression: Congenital, per pt's history. No direct intervention, however his presentation complicates treatment and assessment of his symptoms.
[2023-05-12] MEDS: D5NS W/20 MEQ KCL 1,000 ML IV SCH (00:28)
[2023-05-12] MEDS: SODIUM CHLORIDE FLUSH 0.9% 10 ML SYRINGE IVP SCH ×3 (00:55→16:33)
[2023-05-12] MEDS: metroNIDAZOLE 500 MG/100 ML 500 MG/100 ML BAG IV SCH ×2 (02:39→10:44)
[2023-05-12 06:11] LABS: BASOPHILS # (AUTO) 0.1 10^3/uL (0.0-0.1); BASOPHILS % (AUTO) 1.7 %; EOSINOPHILS # (AUTO) 0.2 10^3/uL (0.0-0.7); EOSINOPHILS % (AUTO) 3.7 %; HCT - HEMATOCRIT 40.3 % (42.0-52.0); HGB - HEMOGLOBIN 14.2 g/dL (14.0-18.0); LYMPHOCYTES # (AUTO) 1.5 10^3/uL (1.5-3.5); LYMPHOCYTES % (AUTO) 35.4 %; MEAN CORPUSCULAR HEMOGLOBIN 32.7 pg (27.0-31.0); MEAN CORPUSCULAR HGB CONC 35.2 g/dL (32.0-36.0); MEAN CORPUSCULAR VOLUME 92.9 fL (80.0-94.0); MEAN PLATELET VOLUME 10.5 fL (7.4-11.4); MONOCYTES # (AUTO) 0.4 10^3/uL (0.0-1.0); NEUTROPHILS % (AUTO) 49.7 %; PLT - PLATELET COUNT 98 10^3/uL (130-450); RED BLOOD COUNT 4.34 10^6/uL (4.70-6.10); RED CELL DISTRIBUTION WIDTH 13.8 % (12.0-15.0); WHITE BLOOD COUNT 4.1 x10^3/uL (4.8-10.8)
[2023-05-12] MEDS: PHENAZOPYRIDINE 100 MG TABLET PO SCH ×2 (06:25→13:12)
[2023-05-12 06:34] LABS: CALCIUM 8.8 mg/dL (8.5-10.3); CRP - C-REACTIVE PROTEIN 0.5 mg/dL (<0.5); POTASSIUM 3.7 mmol/L (3.5-4.5)
[2023-05-12] MEDS: cefTRIAXone 2 GM in SODIUM CHLORIDE 0.9% MINIBAG 100 ML IV SCH (08:04)
[2023-05-12] MEDS: polyethylene glycoL 3350 17 GM PACKET PO SCH (08:04)
[2023-05-12] MEDS: CLOTRIMAZOLE 1% CREAM 15 GM TUBE TOP SCH (08:04)
[2023-05-12] MEDS: FLUCONAZOLE 100 MG TABLET PO SCH (08:04)
[2023-05-12] MEDS ORDERED: LACTOBACILLUS RHAMNOSUS GG CAPSULE PO SCH (12:00)
--- NOTE | 2023-05-12 13:55 | ANESTHESIA PROCEDURE NOTE ---
Anesth Central Line Template - Central Line Central Line Preparation: Consent Obtained, Time out completed, Ultrasound used, Sterile prep and drape Central line location: Right Basilic Central line type: Single lumen Central line catheter tip site resides: Superior vena cava (SVC) Central line aftercare: Secured, Placement confirmed, No pneumothorax, No complications, Bundle checklist complete, Pt tolerated well, Other Other Info/Details: Cath cut at 32, hubbed. Easily aspirates and flushes blood, secured.
--- NOTE | 2023-05-12 14:06 | XRAY Report ---
PROCEDURE: Chest for Line Placement INDICATIONS: new PICC@R basilic v. TECHNIQUE: One view of the chest was acquired. COMPARISON: Chest x-ray 05/05/2023. FINDINGS: Surgical changes and devices: Right-sided PICC with tip terminating in the right brachiocephalic vei n.. Lungs and pleura: No pleural effusions or pneumothorax. Lungs are clear. Mediastinum: Mediastinal contours appear normal. Heart size is normal. Bones and chest wall: No suspicious bony lesions. Overlying soft tissues appear unremarkable. IMPRESSION: Right-sided PICC with tip terminating in the right brachiocephalic vein, recommend advancement by sandra roximately 10 cm. Reviewed by: Juan Estrella MD on 05/12/2023 2:04 PM PDT Approved by: Juan Estrella MD on 05/12/2023 2:04 PM PDT Station ID: [id number]
[2023-05-12 16:36] VITALS: BP 121/69; O2SAT 96
--- NOTE | 2023-05-12 16:45 | Discharge Plan ---
Discharge Plan Problem Reviewed?: Yes Disposition: 61 Swing Bed DC/Xfer Condition: Fair Diet: Regular Activity Restrictions: Activity as Tolerated No Smoking: If you smoke, Please STOP! Call for help.
--- NOTE | 2023-05-12 19:35 | DISCHARGE SUMMARY ---
Discharge Summary Admit Date: 05/06/23 Discharge Date: 05/12/23 Discharging Provider: Jossy Downs MD Primary Care Provider: Jonathan Onofre Code Status: Attempt Resuscitation Condition at Discharge: Fair Discharge Disposition: 61 Swing Bed DC/Xfer Discharge Facility Name: [facility] , [facility] bed - [facility] History of Present Illness: This is a 53-year-old male who has trisomy 21, lives with his mom and stepdad. He was brought to the emergency room on 05/09 where his blood pressure was in the 70s over 40s, fingerstick glucose was 144. Because he was complaining of neck stiffness, the ER evaluated him for possible infection versus meningitis. His temperature was 37.6. Blood pressure 85/52. Respirations 18. 95% on room air. On examination he was lethargic male with features of trisomy 21. Responsive to voice and commands. Neck was stiff and hurt. CBC was normal. Chemistries were essentially normal except for creatinine of 1.6 and a BUN of 22. Lactic acid was 2.7. A chest x-ray was without acute cardiopulmonary process. Urinalysis had a small amount of leukocyte esterase greater than 25 white cells, rare squa mous cells, many bacteria. Because of neck stiffness he underwent a lumbar puncture. His CSF was colorless, clear, with 3 white cells, 275 red cells. 78 glucose which was high, and 58 total protein which was high. His viral panel was negative for COVID, parainfluenza, enterovirus, etc. Treatment in the emergency room has consisted of Rocephin and vancomycin for empiric treatment of meningitis. Dexamethasone 15 mg IV push once. Morphine once. 2 L of normal saline. The case was discussed with the emergency room provider. Dr. Moran and I discussed possible sources. Patient was negative on review of systems other than the neck stiffness, so I am going to continue empiric treatment for meningitis and will evaluate the patient for further infection. I met the patient on [facility]. His mom was at the bedside. He and she were able to provide adequate history. Since he has not had any severe abnormalities. There have been no heart issues, GI issues, or renal issues. He is independent with activities of daily living. Just does not drive a car. He was in good health until this episode. He tells me there is no blurred vision, headache, ear pain. No sore throat. It does not hurt to swallow. He denies being congested in his sinuses or his chest but both mom and I tell him that he sounds like he is congested in his mouth. He denies cough, phlegm production. He denies chest pain, orthopnea, edema, palpitations. He did have the diarrhea but denies abdominal pain. He is eating dinner as I speak to him and he says it tasted really good. He is eating about 50% of his chicken and rice. Eating all of his dessert and fruit. He does not have any knee pain. Any joint pain. He has a skin rash. Mom said that he was staying with his dad a couple of years ago and developed a severe fungal infection of his feet and legs. They treated it but ever since then his legs have been discolored. The rash is not new. He has had seizures once. But denies syncope. Cognitive function is stable for him. - HOSPITAL COURSE Hospital Course: (1) Group B streptococcal UTI Mr. Dale presented 05/06 to the ED with AMS and hypotension w/ single episode of nausea, vomiting, and neck stiffness. Unclear source of infection, so workup in ED was r/o meningitis, UTI, and sepsis. UTI was uncovered in ED workup. Urine culture ID'd Streptococcus viridans, which has responded well to IV ceftriaxone. Daily 2 g ceftriaxone IV continued. Consulted BARBARA Ricardo w/ [facility]. Due to presence of both Aerococcus urinae (in blood) and Strep viridans (in urine) Dr. Huertas advised remaining on the current course for 14 days. Discontinue pyridium as urinary symptoms resolved. (2) Bacteremia w/ aerococcus urinae in blood cultures Blood cultures obtained in ED sepsis workup. Blood cultures ID'd Aerococcus urinae, which was confirmed by lab. Infection has responded well to IV ceftriax one. Daily 2 g ceftriaxone IV continued. Echo performed to evaluate for endocarditis and there was no suspicion for a vegetation. Per mother, he has returned to baseline mental status. His mobility improved, able to do ADLs with no assistance, which is his baseline. Continue ceftriaxone and metronidazole via IV for 14 days, ending on 05/24/[address] Huertas's advice. PICC line was inserted by anesthesia and was discharged to swing bed status at [facility]. (3) Colitis Patient was continuing to have nausea post admission. CT abdomen showed diffuse colitis of the transverse, descending, and sigmoid colon. Addition of metronidazole has resolved pt's nausea/vomiting. Pt's mother continues to endorse improvement in his mental status, speech, and mobility, and the patient looks alert and comfortable. Pt denies nausea, vomiting, or abdominal pains; pt's mother confirms. Dr. Huertas reviewed the case and she recommended adding metronidazole plus ceftriaxone via IV for 14 days total. (4) Nausea Found at hospital admission to be intermittently retching w/o vomit. As pt was continuing to have abdominal pain, CT abdomen was performed for r/o SBO or other GI etiology. Pt found to have diffuse colitis in his large intestine, treated as noted above. Pt continues to deny nausea; mother denies any recurrence of his symptoms. (5) Ring worm rash in L axilla Found upon hospital admission, pt had a tinea corporis region under his L axilla, which was treated. Diflucan discontinued as rash has resolved; PRN topical clotrimazole will remain for his swing bed status. (6) Acute on chronic kidney disease Pt's baseline Creat is 1.3 and GFR is 40. He presented with a Creat of 1.6 and GFR of 45. He received IV fluids during his hospitalization and his Creat 1.0 and GFR of 78 improved upon discharge. (7) Neck fullness Pt's mother was concerned regarding a unilateral, left side edema she noted as new. No discrete adenopathy in the supraclavicular fossa, preauricular/posterior auricular area. He denies complaints w/ chewing, swallowing, or pain. Head/neck CT negative, reviewed with radiologist; this review was further reiterated w/ pt's mother and reassured there is no lesion or tumor present at time of admission. (8) Down's Syndrome No direct intervention, however his presentation complicates treatment and ongoing assessment of his symptoms. - ALLERGIES Allergies/Adverse Reactions: Allergies Allergy/AdvReac Type Severity Reaction Status Date / Time Penicillins Allergy Unknown Verified 10/06/19 11:04 - MEDICATIONS Home Medications: Ambulatory Orders Medication Instructions Recorded Confirmed Clotrimazole/Betamethasone Crm 1 applic TOP BID 05/06/23 05/13/23 [Lotrisone Cream] Multivitamin [Theragran] 1 each PO DAILY 05/06/23 05/13/23 - PHYSICAL EXAM AT DISCHARGE General Appearance: positive: No acute distress, Alert, Other (Down's syndrome appearance of eyes and face) Eyes Bilateral: positive: Normal inspection ENT: positive: ENT inspection nml, No signs of dehydration Neck: positive: Nml inspection, Thyroid nml, No JVD, Trachea midline Respiratory: positive: Chest non-tender, No respiratory distress, Breath sounds nml Cardiovascular: positive: Regular rate & rhythm Abdomen: positive: Non-tender, Nml bowel sounds, No distention Back: positive: Nml inspection Skin: positive: Color nml, No rash (L axilla rash resolved), Warm, Dry Extremities: positive: Non-tender, Full ROM, Nml appearance, No pedal edema Neurologic/Psychiatric: positive: Oriented x3 (Baseline cognition, some cognition deficit w/ Trisomy 21), Motor nml, Mood/affect nml - LABS Result Diagrams: 05/12/23 05:57 05/12/23 05:57 - SEPSIS Current Stage of Sepsis: Resolved Possible source of Sepsis: GI tract/intra-abdominal (Possibly related to colitis), Genitourinary Sepsis Criteria: Suspected or Documented, Recorded Heart Rate greater than 90 bpm, WBC count greater than 10% bands, SBP less than 90 mmHg, Metabolic: lactate > 2 mmol/L - TIME SPENT Time Spent in Discharge (Minutes): 45
== END 2023-05-12 17:40 | disposition swing bed (61) | DRG 872 ==
LOC: EDUNIT# → ED 12:04 → MS2 15:44 → OBSVTOIN 05-06 12:25
PROVIDERS: ADMIT Specialist; ATTEND Internal Medicine
PROC: 02HV33Z Insertion of Infusion Device into Superior Vena Cava, Percutaneous Approach (ICD-10-PCS; principal; 2023-05-12)
DX: I95.9 Hypotension, unspecified (principal); N39.0 Urinary tract infection, site not specified; A41.89 Other specified sepsis; N30.00 Acute cystitis without hematuria; E86.0 Dehydration; R11.2 Nausea with vomiting, unspecified; R19.7 Diarrhea, unspecified; D69.6 Thrombocytopenia, unspecified; N17.9 Acute kidney failure, unspecified; M43.6 Torticollis; B95.4 Other streptococcus as the cause of diseases classified elsewhere; K52.9 Noninfective gastroenteritis and colitis, unspecified; B35.4 Tinea corporis; N18.30 Chronic kidney disease, stage 3 unspecified; Q90.9 Down syndrome, unspecified; R53.1 Weakness; R41.0 Disorientation, unspecified; G47.30 Sleep apnea, unspecified; J32.0 Chronic maxillary sinusitis; R60.0 Localized edema; Z11.52 Encounter for screening for COVID-19
CPT/HCPCS: 36415; 62270; 70491; 71045; 74177; 80048; 80053; 80306; 81001; 82945; 83605; 83735; 84157; 85025; 86140; 87040; 87070; 87077; 87086; 87150; 87205; 87529; 87633; 87640; 89051; 93005; 93306; 96361; 96365; 96366; 96367; 96375; 99285; 99291; A9270; C1751; G0378; J3370; Q9967; 81599

== ENCOUNTER 2023-05-12 11:19 | Inpatient (IN) | payer MEDICARE, MEDICAID ==
[2023-05-12] MEDS ORDERED: ACETAMINOPHEN 325 MG TABLET PO PRN (16:47)
[2023-05-12] MEDS: metroNIDAZOLE 500 MG/100 ML 500 MG/100 ML BAG IV SCH (18:58)
[2023-05-12] MEDS: CLOTRIMAZOLE 1% CREAM 15 GM TUBE TOP SCH (23:41)
[2023-05-12] MEDS: PHENAZOPYRIDINE 100 MG TABLET PO SCH (23:41)
[2023-05-13] MEDS: metroNIDAZOLE 500 MG/100 ML 500 MG/100 ML BAG IV SCH ×3 (06:23→21:49)
[2023-05-13] MEDS: PHENAZOPYRIDINE 100 MG TABLET PO SCH ×3 (06:23→21:49)
[2023-05-13] MEDS ORDERED: FLUCONAZOLE 100 MG TABLET PO SCH (09:00)
[2023-05-13] MEDS: MULTIVITAMIN TABLET PO SCH (10:25)
[2023-05-13] MEDS: CLOTRIMAZOLE 1% CREAM 15 GM TUBE TOP SCH (10:26)
[2023-05-13] MEDS: LACTOBACILLUS RHAMNOSUS GG CAPSULE PO SCH (10:26)
[2023-05-13] MEDS: cefTRIAXone 2 GM in SODIUM CHLORIDE 0.9% MINIBAG 100 ML IV SCH (10:27)
--- NOTE | 2023-05-13 10:53 | PHARMACY PROGRESS NOTE ---
- Best Possible Medication History Admit Date and Time: 05/12/23 1646 Processed by: Pharmacy Medication History completed: Yes Patient Interview: Completed Secondary Source(s): Other family member [facility] completed on 05/06 during inpatient admission (now swing bed) As the person ultimately responsible for medication therapy, providers are able to order a medication from an existing home medication list in [facility] via the "Reconcile Routine" prior to Confirmation of that medication by support merchandiser. Such practice is discouraged except when the physician, in their clinical judgment, deems that a medical need exists for a medication without regard to previous use.
--- NOTE | 2023-05-13 19:14 | HISTORY & PHYSICAL EXAMINATION ---
Chief Complaint - Chief Complaint Chief Complaint: Colitis; Bacteremia History of Present Illness - Admitted From Admitted From:: [facility], [facility] - History Obtained From Records Reviewed: Yes History obtained from: Patient; pt's mother Exam Limitations: Pt has Trisomy 21 with some cognitive limitations - History of Present Illness HPI Comment/Other: Mr. Dale is a transfer from our inpatient [facility]. He was diagnosed w/ bacteremia and colitis and treated effectively with ceftriaxone and metronidazole. His infections are resolving and his overall constitution is improving. Due to care recommendation from [facility] specialist Dr. Huertas, the patient is to remain on IV antibiotics for the remainder of his treatment course. He had a PICC line placed in his R basilic vein by anesthesia staff for duration of antibiotics, line is patent w/ no complications. He is expected to continue his ceftriaxone plus metronidazole course through 05/24/23. 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 - Family & Social History Family History: Mother: Alive and Well Living arrangement: At home Living Situation: With family - Substance History Use: Uses substance without health or social issues: NONE Abuse: Recurrent use of substance despite neg consequences: NONE Dependence: Experiences withdrawal or developed tolerances: NONE - POLST POLST Status: Full Code Meds/Allgy - Home Medications Home Medications: Ambulatory Orders Medication Instructions Recorded Confirmed Clotrimazole/Betamethasone Crm 1 applic TOP BID 05/06/23 05/13/23 [Lotrisone Cream] Multivitamin [Theragran] 1 each PO DAILY 05/06/23 05/13/23 - Allergies Allergies/Adverse Reactions: Allergies Allergy/AdvReac Type Severity Reaction Status Date / Time Penicillins Allergy Unknown Verified 10/06/19 11:04 Review of Systems - All Other Systems All Other Systems: reports: Reviewed and negative Exam - Vital Signs Reviewed Vital Signs: Yes - Physical Exam General Appearance: positive: No acute distress, Alert, Other (Down's syndrome appearance w/ eyes and face) Eyes Bilateral: positive: Normal inspection, No scleral icterus ENT: positive: No signs of dehydration Neck: positive: Nml inspection, Thyroid nml, No JVD, Trachea midline Respiratory: positive: Chest non-tender, No respiratory distress Abdomen: positive: Non-tender, No distention Skin: positive: Color nml, No rash, Warm, Dry Extremities: positive: Non-tender, Full ROM, Nml appearance, No pedal edema Neurologic/Psychiatric: positive: Oriented x3 (Pt now at baseline cognition w/ Trisomy 21 history), Motor nml, Sensation nml, Mood/affect nml Sepsis Event Note (H) - Evaluation Current Stage of Sepsis: Ruled out Conclusion/Plan - Problem List (1) Streptococcal bacteremia Conclusion/Plan: His infections are resolving and his overall constitution is improving. Due to care recommendation from [facility] specialist Dr. Huertas, the patient is to remain on IV antibiotics for the remainder of his treatment course. He is expected to continue his ceftriaxone plus metronidazole course through 05/24/23. (2) Group B streptococcal UTI Conclusion/Plan: His infections are resolving and his overall constitution is improving. Due to care recommendation from [facility] specialist Dr. Huertas, the patient is to remain on IV antibiotics for the remainder of his treatment course. He is expected to continue his ceftriaxone plus metronidazole course through 05/24/23. (3) Colitis Conclusion/Plan: His colitis is resolving w/ no new complaints; his overall constitution is improving. Due to care recommendation from [facility] specialist Dr. Huertas, the patient is to remain on IV antibiotics for the remainder of his treatment course. He is expected to continue his ceftriaxone plus metronidazole course through 05/24/23. (4) Tinea corporis Conclusion/Plan: During his inpatient stay, pt was given both topical and oral treatment for his L axillary tinea corporis, which has now resolved. Oral diflucan will be discontinued and the topical will be available PRN if the patient experiences a recurrence of the rash. (5) Down's syndrome Conclusion/Plan: Supportive care. Core Measures - Anticipated LOS I expect patient to be DC'd or transferred within 96 hours.: No
[2023-05-13] MEDS ORDERED: CLOTRIMAZOLE 1% CREAM 15 GM TUBE TOP PRN (19:31)
[2023-05-14] MEDS: metroNIDAZOLE 500 MG/100 ML 500 MG/100 ML BAG IV SCH ×3 (06:14→21:35)
[2023-05-14] MEDS: LACTOBACILLUS RHAMNOSUS GG CAPSULE PO SCH (08:15)
[2023-05-14] MEDS: MULTIVITAMIN TABLET PO SCH (08:15)
[2023-05-14] MEDS: PHENAZOPYRIDINE 100 MG TABLET PO SCH ×2 (08:15→21:34)
[2023-05-14] MEDS: cefTRIAXone 2 GM in SODIUM CHLORIDE 0.9% MINIBAG 100 ML IV SCH (08:16)
[2023-05-15] MEDS: metroNIDAZOLE 500 MG/100 ML 500 MG/100 ML BAG IV SCH ×3 (05:31→21:29)
[2023-05-15] MEDS: cefTRIAXone 2 GM in SODIUM CHLORIDE 0.9% MINIBAG 100 ML IV SCH (08:52)
[2023-05-15] MEDS: MULTIVITAMIN TABLET PO SCH (08:53)
[2023-05-15] MEDS: LACTOBACILLUS RHAMNOSUS GG CAPSULE PO SCH (08:53)
[2023-05-15] MEDS ORDERED: PHENAZOPYRIDINE 100 MG TABLET PO SCH (09:00)
[2023-05-16] MEDS: metroNIDAZOLE 500 MG/100 ML 500 MG/100 ML BAG IV SCH ×3 (05:40→21:29)
[2023-05-16] MEDS: cefTRIAXone 2 GM in SODIUM CHLORIDE 0.9% MINIBAG 100 ML IV SCH (08:45)
[2023-05-16] MEDS: MULTIVITAMIN TABLET PO SCH (08:45)
[2023-05-16] MEDS: LACTOBACILLUS RHAMNOSUS GG CAPSULE PO SCH (08:45)
[2023-05-17] MEDS: metroNIDAZOLE 500 MG/100 ML 500 MG/100 ML BAG IV SCH ×3 (05:55→21:35)
[2023-05-17] MEDS: LACTOBACILLUS RHAMNOSUS GG CAPSULE PO SCH (08:19)
[2023-05-17] MEDS: MULTIVITAMIN TABLET PO SCH (08:20)
[2023-05-17] MEDS: cefTRIAXone 2 GM in SODIUM CHLORIDE 0.9% MINIBAG 100 ML IV SCH (08:22)
--- NOTE | 2023-05-17 11:31 | PROVIDER PROGRESS NOTE ---
Assessment/Plan - Problem List (1) Streptococcal bacteremia Assessment/Plan: Improving Continue ceftriaxone and a Flagyl Treatment course through 05/24/2023 (2) Group B streptococcal UTI Assessment/Plan: Continue IV antibiotics (3) Colitis Assessment/Plan: Denies abdominal pain, no diarrhea Continue with Flagyl as planned (4) Down's syndrome Assessment/Plan: Pleasant, cooperative - Current Meds Current Meds: Current Medications Generic Name Dose Route Start Last Admin Trade Name Freq PRN Reason Stop Dose Admin Ceftriaxone Sodium 2 gm/ 100 mls @ 200 mls/hr 05/13/23 09:00 05/17/23 08:55 Sodium Chloride IV 05/25/23 00:01 Infused DAILY HIRAL Infusion Metronidazole 500 mg in 100 mls @ 100 mls/hr 05/12/23 19:00 05/17/23 06:00 Flagyl 500 Mg/100 Ml IV 05/25/23 00:01 0 mls/hr Q8H HIRAL Infusion Lactobacillus Rhamnosus 1 cap 05/13/23 09:00 05/17/23 08:19 Lactobacillus Rhamnosus Gg Capsule PO 05/25/23 00:01 1 cap DAILY HIRAL Administration Multivitamins 1 tab 05/13/23 09:00 05/17/23 08:20 Multivitamin Tablet PO 1 tab DAILY HIRAL Administration Subjective - Subjective Patient Reports: Feeling Better (Patient states he feels well, eat well, goes to bathroom independently Mother is at bedside very supportive) Objective Vital Signs: Vital Signs - 24 hr 05/16/23 05/17/23 15:33 08:04 Temperature 36.4 C L 36.3 C L Heart Rate [ 73 62 Brachial] Respiratory 16 16 Rate Blood Pressure 104/63 102/62 [Left Brachial artery] O2 Saturation 96 99 Oxygen O2 Source Room air I&O (Last 24 Hrs): Intake and Output Totals x24h 05/15/23 05/16/23 05/17/23 23:59 23:59 23:59 Intake Total 1710 1585 588.333 Output Total 1 Balance 1710 1584 588.333 General: Alert, Cooperative HEENT: PERRLA, EOMI Neck: Supple, No JVD Neuro: Alert Cardiovascular: Regular rate Respiratory: Chest non-tender Extremities: No clubbing, No edema - Procedures Procedures: Procedures INSERTION OF INFUSION DEV INTO SUP VENA CAVA, PERC APPROACH (05/06/23) Sepsis Event Note (H) - Evaluation Current Stage of Sepsis: Ruled out ABX Reporting Has patient been on IV antibiotics over the past 48 hours?: Yes Current Medications - Current Medications Current Medications: Active Medications Acetaminophen (Acetaminophen 325 Mg Tablet) 650 mg PO Q4HR PRN PRN Reason: Pain 1 to 4, or Fever Clotrimazole (Clotrimazole 1% Cream 15 Gm Tube) 1 applic TOP BID PRN PRN Reason: PER PHYSICIAN ORDER Ceftriaxone Sodium 2 gm/ (Sodium Chloride) 100 mls @ 200 mls/hr IV DAILY HIRAL Stop: 05/25/23 00:01 Last Infusion: 05/17/23 08:55 Dose: Infused Metronidazole (Flagyl 500 Mg/100 Ml) 500 mg in 100 mls @ 100 mls/hr IV Q8H HIRAL Stop: 05/25/23 00:01 Last Infusion: 05/17/23 15:23 Dose: Infused Lactobacillus Rhamnosus (Lactobacillus Rhamnosus Gg Capsule) 1 cap PO DAILY HIRAL Stop: 05/25/23 00:01 Last Admin: 05/17/23 08:19 Dose: 1 cap Multivitamins (Multivitamin Tablet) 1 tab PO DAILY [facility] Last Admin: 05/17/23 08:20 Dose: 1 tab Clotrimazole/Betamethasone Crm [Lotrisone Cream] 1 applic TOP BID 05/06/23 Multivitamin [Theragran] 1 each PO DAILY 05/06/23
[2023-05-18] MEDS: metroNIDAZOLE 500 MG/100 ML 500 MG/100 ML BAG IV SCH ×3 (06:05→22:10)
[2023-05-18] MEDS: MULTIVITAMIN TABLET PO SCH (10:00)
[2023-05-18] MEDS: LACTOBACILLUS RHAMNOSUS GG CAPSULE PO SCH (10:00)
[2023-05-18] MEDS: cefTRIAXone 2 GM in SODIUM CHLORIDE 0.9% MINIBAG 100 ML IV SCH (10:00)
[2023-05-19] MEDS: metroNIDAZOLE 500 MG/100 ML 500 MG/100 ML BAG IV SCH ×3 (05:51→21:41)
[2023-05-19] MEDS: MULTIVITAMIN TABLET PO SCH (08:39)
[2023-05-19] MEDS: LACTOBACILLUS RHAMNOSUS GG CAPSULE PO SCH (08:39)
[2023-05-19] MEDS: cefTRIAXone 2 GM in SODIUM CHLORIDE 0.9% MINIBAG 100 ML IV SCH (08:43)
[2023-05-20] MEDS: metroNIDAZOLE 500 MG/100 ML 500 MG/100 ML BAG IV SCH ×3 (06:15→22:08)
[2023-05-20] MEDS: LACTOBACILLUS RHAMNOSUS GG CAPSULE PO SCH (09:19)
[2023-05-20] MEDS: MULTIVITAMIN TABLET PO SCH (09:19)
[2023-05-20] MEDS: cefTRIAXone 2 GM in SODIUM CHLORIDE 0.9% MINIBAG 100 ML IV SCH (09:19)
[2023-05-21] MEDS: metroNIDAZOLE 500 MG/100 ML 500 MG/100 ML BAG IV SCH ×3 (06:19→21:44)
[2023-05-21] MEDS: MULTIVITAMIN TABLET PO SCH (08:38)
[2023-05-21] MEDS: cefTRIAXone 2 GM in SODIUM CHLORIDE 0.9% MINIBAG 100 ML IV SCH (08:38)
[2023-05-21] MEDS: LACTOBACILLUS RHAMNOSUS GG CAPSULE PO SCH (08:38)
[2023-05-21] MEDS ORDERED: ONDANSETRON ODT 4 MG TABLET TL PRN (10:14)
[2023-05-22] MEDS: metroNIDAZOLE 500 MG/100 ML 500 MG/100 ML BAG IV SCH ×3 (06:31→21:44)
[2023-05-22] MEDS: cefTRIAXone 2 GM in SODIUM CHLORIDE 0.9% MINIBAG 100 ML IV SCH (07:51)
[2023-05-22] MEDS: LACTOBACILLUS RHAMNOSUS GG CAPSULE PO SCH (08:57)
[2023-05-22] MEDS: MULTIVITAMIN TABLET PO SCH (08:57)
[2023-05-23] MEDS: metroNIDAZOLE 500 MG/100 ML 500 MG/100 ML BAG IV SCH ×3 (05:56→21:20)
[2023-05-23] MEDS: LACTOBACILLUS RHAMNOSUS GG CAPSULE PO SCH (08:06)
[2023-05-23] MEDS: MULTIVITAMIN TABLET PO SCH (08:06)
[2023-05-23] MEDS: cefTRIAXone 2 GM in SODIUM CHLORIDE 0.9% MINIBAG 100 ML IV SCH (08:06)
[2023-05-24] MEDS: metroNIDAZOLE 500 MG/100 ML 500 MG/100 ML BAG IV SCH ×3 (06:33→21:52)
[2023-05-24] MEDS: cefTRIAXone 2 GM in SODIUM CHLORIDE 0.9% MINIBAG 100 ML IV SCH (07:46)
[2023-05-24 07:58] LABS: BASOPHILS # (AUTO) 0.1 10^3/uL (0.0-0.1); BASOPHILS % (AUTO) 3.3 %; EOSINOPHILS # (AUTO) 0.1 10^3/uL (0.0-0.7); EOSINOPHILS % (AUTO) 3.3 %; HCT - HEMATOCRIT 42.1 % (42.0-52.0); HGB - HEMOGLOBIN 14.6 g/dL (14.0-18.0); LYMPHOCYTES # (AUTO) 1.1 10^3/uL (1.5-3.5); LYMPHOCYTES % (AUTO) 26.9 %; MEAN CORPUSCULAR HEMOGLOBIN 32.7 pg (27.0-31.0); MEAN CORPUSCULAR HGB CONC 34.7 g/dL (32.0-36.0); MEAN CORPUSCULAR VOLUME 94.4 fL (80.0-94.0); MEAN PLATELET VOLUME 10.3 fL (7.4-11.4); MONOCYTES # (AUTO) 0.4 10^3/uL (0.0-1.0); MONOCYTES % (AUTO) 8.5 %; NEUTROPHILS # (AUTO) 2.5 10^3/uL (1.5-6.6); NEUTROPHILS % (AUTO) 57.8 %; PLT - PLATELET COUNT 76 10^3/uL (130-450); RED BLOOD COUNT 4.46 10^6/uL (4.70-6.10); RED CELL DISTRIBUTION WIDTH 14.2 % (12.0-15.0); WHITE BLOOD COUNT 4.2 x10^3/uL (4.8-10.8)
[2023-05-24 08:14] LABS: CALCIUM 8.4 mg/dL (8.5-10.3); MAGNESIUM 1.8 mg/dL (1.7-2.3)
[2023-05-24] MEDS: MULTIVITAMIN TABLET PO SCH (09:36)
[2023-05-24] MEDS: LACTOBACILLUS RHAMNOSUS GG CAPSULE PO SCH (09:36)
--- NOTE | 2023-05-25 07:27 | DISCHARGE SUMMARY ---
Discharge Summary Admit Date: 05/13/23 Discharge Date: 05/25/23 Discharging Provider: Jossy Downs MD Primary Care Provider: Jonathan Onofre MD Code Status: Attempt Resuscitation Condition at Discharge: Stable Discharge Disposition: 01 Home, Self Care - DIAGNOSES Discharge Diagnoses with Status of Each Condition: (1) Streptococcal bacteremia RESOLVED (2) Group B streptococcal UTI RESOLVED (3) Colitis RESOLVED (4) Tinea corporis RESOLVED (5) Down's syndrome CHRONIC - HPI History of Present Illness: Mr. Dale is a transfer from inpatient unit to swing bed service. His bacteremia and colitis were treated with ceftriaxone and metronidazole. Per ID, he is to remain on IV antibiotics for remainder of treatment course. PICC line placed in R basilic vein for antibiotics; line patent w/ no complications. Ceftriaxone plus metronidazole course will end the night of 05/24/23. He should be fit for discharge the following day. - HOSPITAL COURSE Hospital Course: His infections of bacteremia and colitis have resolved. As recommended by Dr. Candy Huertas, ID specialist / [facility], patient completed 14 days of IV ceftriaxone plus metronidazole. Just prior to swing bed transfer, he was treated for L axillary tinea corporis, now resolved. Per pt's mother's request, a prescription for topical clotrimazole will be sent home with them. Mr. Dale has successfully met his goals while in swing bed status and is medically cleared to discharge home. - ALLERGIES Allergies/Adverse Reactions: Allergies Allergy/AdvReac Type Severity Reaction Status Date / Time Penicillins Allergy Unknown Verified 10/06/19 11:04 - MEDICATIONS Home Medications: Ambulatory Orders Medication Instructions Recorded Confirmed Multivitamin [Theragran] 1 each PO DAILY 05/06/23 05/13/23 Clotrimazole/Betamethasone Crm 1 applic TOP BID #1 kit 05/25/23 [Lotrisone Cream] - PHYSICAL EXAM AT DISCHARGE General Appearance: positive: No acute distress, Alert Eyes Bilateral: positive: Normal inspection (w/ Down's syndrome facies) ENT: positive: ENT inspection nml Neck: positive: Nml inspection Respiratory: positive: Chest non-tender, No respiratory distress Cardiovascular: positive: Regular rate & rhythm Abdomen: positive: Non-tender, No distention Skin: positive: Color nml, No rash, Warm, Dry Extremities: positive: Non-tender, Full ROM, Nml appearance Neurologic/Psychiatric: positive: Oriented x3 (At baseline cognition), Motor nml, Mood/affect nml - LABS Result Diagrams: 05/24/23 07:52 05/24/23 07:52 - SEPSIS Current Stage of Sepsis: Ruled out - TIME SPENT Time Spent in Discharge (Minutes): 30
--- NOTE | 2023-05-25 08:02 | Discharge Plan ---
Discharge Plan Problem Reviewed?: Yes Disposition: Home, Self Care Condition: Stable Prescriptions: Clotrimazole/Betamethasone Crm [Lotrisone Cream] 1 applic TOP BID #1 kit Diet: Regular Activity Restrictions: Activity as Tolerated Shower Restrictions: No Driving Restrictions: Yes Health Concerns: Patient needed a long course of iv antibiotics to treat a bacterial infection in the bloodstream, which has now been complted. Patient may resume any pre-hospital medications. I have re-ordered a tube of the Lotrisone cream, to use when needed. An appointment with the Primary Care Provider should be done in the next 1-2 weeks for a hospital follow-up visit. Plan of Treatment: Resume home medications and usual schedule of home activities, after discharge. Care Goals: Improvement in symptoms and stabilization are the goals. Assessment: The patient and mother understand and are agreeable with the plan. No Smoking: If you smoke, Please STOP! Call for help.
[2023-05-25] MEDS: MULTIVITAMIN TABLET PO SCH (08:38)
[2023-05-25 09:44] VITALS: BP 106/72; O2SAT 100
== END 2023-05-25 10:10 | disposition home or self-care (01) | DRG 690 ==
LOC: MS2 16:46
PROVIDERS: ADMIT Internal Medicine; ATTEND Internal Medicine
DX: N39.0 Urinary tract infection, site not specified (principal); B95.1 Streptococcus, group B, as the cause of diseases classified elsewhere; K52.9 Noninfective gastroenteritis and colitis, unspecified; B35.4 Tinea corporis; Q90.9 Down syndrome, unspecified
CPT/HCPCS: 36415; 80048; 83735; 85025